=== PATIENT | female | born 2000 | race Caucasian/White ===

== ENCOUNTER 2023-04-04 19:13 | Emergency (ER) | payer OTHER, SELFPAY ==
[2023-04-04 19:19] VITALS: BP 139/87; PULSE 104; RESP 16; TEMP 37.4; O2SAT 98; BMI 29.1
--- NOTE | 2023-04-04 19:30 | ED_ITS ---
HPI - General Adult General Chief complaint: Nausea/Vomiting/Diarrhea Stated complaint: under 20 weeks, Nausea/Vomiting Time Seen by Provider: 04/04/23 19:17 Source: patient Mode of arrival: walk-in History of Present Illness HPI narrative: Patient is A 22-year-old female who presents to the ER at 4 to 5 weeks of for nausea and feeling shaky. She denies abdominal pain, vaginal bleeding, fluid leakage. She has had no fevers, chills, cough, congestion. She states her primary concern is that it is difficult for her to work when she is feeling so nauseous, she states she feels nauseous when she eats and when she d oes not eat. She had a positive home test, she is awaiting an appointment with her [employer] in [place]. Related Data Previous Rx's Medication Instructions Recorded ondansetron 4 mg disintegrating 4 mg PO Q6H PRN nausea and 04/04/23 tablet vomiting #12 tabs Allergies Allergy/AdvReac Type Severity Reaction Status Date / Time No Known Drug Allergies Allergy Verified 04/04/23 19:21 Review of Systems ROS Constitutional Denies: fever or chills Ears, nose, mouth, and throat Denies: nasal congestion Cardiovascular Denies: chest pain Respiratory Denies: shortness of breath or cough Gastrointestinal Reports: nausea; Denies: abdominal pain, vomiting or diarrhea Genitourinary Denies: painful urination, pelvic pain, vaginal bleeding or vaginal discharge Musculoskeletal Denies: back pain Integumentary/Breast Denies: rash Neurological Denies: headache Exam Narrative Exam Narrative: Gen.: Awake, alert, in no distress Head: Normocephalic, atraumatic ENT: Moist mucous membranes Respiratory: No respiratory distress, lungs clear bilaterally Cardio: Regular rate and rhythm Gastrointestinal: Abdomen is soft, nondistended and nontender to palpation Extremities: Moves extremities equally Psych: Normal mood and affect Neuro: No focal neuro deficit Skin: Warm, dry, intact Constitutional Vital Signs, click to edit/add: Last Vital Signs Temp 99.3 F 04/04/23 19:19 Pulse 104 H 04/04/23 19:19 Resp 16 04/04/23 19:19 BP 139/87 04/04/23 19:19 Pulse Ox 98 04/04/23 19:19 O2 Del Method Room Air 04/04/23 19:25 Course Vital Signs Vital signs: Vital Signs Temperature 99.3 F 04/04/23 19:19 Pulse Rate 104 H 04/04/23 19:19 Respiratory Rate 16 04/04/23 19:19 Blood Pressure 139/87 04/04/23 19:19 Pulse Oximetry 98 04/04/23 19:19 Oxygen Delivery Method Room Air 04/04/23 19:19 Temperature 99.3 F 04/04/23 19:19 Pulse Rate 104 H 04/04/23 19:19 Respiratory Rate 16 04/04/23 19:19 Blood Pressure 139/87 04/04/23 19:19 Pulse Oximetry 98 04/04/23 19:19 Oxygen Delivery Method Room Air 04/04/23 19:25 Medical Decision Making MDM Narrative Medical decision making narrative: Lab studies are unremarkable, no evidence of severe dehydration. test is positive. Patient given Zofran for home. Follow-up with [employer] and return to the ER if symptoms change or worsen. She has no complaints of abdominal pain, vaginal bleeding or fluid leakage in the ER. Medical Records Medical records reviewed: Yes I reviewed the patient's medical records Lab Data Lab results reviewed: Yes I reviewed the patient's lab results Labs: Lab Results 04/04/23 04/04/23 Range/Units 19:24 20:04 WBC 11.3 H (4.0-11.0) 10^3/uL RBC 4.11 L (4.20-5.40) 10^6/uL Hgb 12.8 (12.0-16.0) g/dL Hct 36.7 (36.0-48.0) % MCV 89.3 (81.0-99.0) fL MCH 31.1 (26.7-34.0) pg MCHC 34.9 (29.9-35.2) g/dL RDW 12.0 (11.0-15.0) % Plt Count 324 (150-450) 10^3/uL MPV 9.1 L (9.5-13.5) fL Neut % (Auto) 61.7 (43.0-75.0) % Lymph % (Auto) 30.4 (20.5-60.0) % Starke % (Auto) 6.6 (1.7-12.0) % Eos % (Auto) 0.5 L (0.9-7.0) % Baso % (Auto) 0.5 (0.2-2.0) % Neut # (Auto) 7.0 H (1.4-6.5) 10^3/uL Lymph # (Auto) 3.4 (1.2-3.8) 10^3/uL Starke # (Auto) 0.7 (0.3-0.8) 10^3/uL Eos # (Auto) 0.1 (0.0-0.7) 10^3/uL Baso # (Auto) 0.1 (0.0-0.1) 10^3/uL Abs Immat Gran (auto) 0.03 (0.00-0.03) 10^3/uL Imm/Tot Granulo (auto) 0.3 (0.0-0.5) % Sodium 137 (136-145) mmol/L Potassium 3.9 (3.5-5.1) mmol/L Chloride 103 (98-107) mmol/L Carbon Dioxide 26.0 (21.0-32.0) mmol/L Anion Gap 11.9 BUN 5.0 L (7.0-18.0) mg/dL Creatinine 0.58 (0.55-1.02) mg/dL Est GFR ( Amer) >60 (>=60) Est GFR (Non-Af Amer) >60 (>=60) BUN/Creatinine Ratio 8.6 Glucose 82 (74-106) mg/dL Calcium 8.8 (8.5-10.1) mg/dL Serum HCG, Qual Positive A (NEGATIVE) Urine Color Lt. yellow (YELLOW) Urine Clarity Clear (CLEAR) Urine pH 7.5 (5.0-9.0) Ur Specific [place] 1.020 (1.005-1.025) Urine Protein Negative (NEG/TRACE) mg/dL Urine Glucose (UA) Negative (NEGATIVE) mg/dL Urine Ketones Negative (NEGATIVE) mg/dL Urine Occult Blood Negative (NEGATIVE) Urine Nitrite Negative (NEGATIVE) Urine Bilirubin Negative (NEGATIVE) Urine Urobilinogen 0.2 (0.2-1.0) EU/dL Ur Leukocyte Esterase Negative (NEGATIVE) Discharge Plan Discharge Chief Complaint: Nausea/Vomiting/Diarrhea Clinical Impression: Nausea/vomiting in Patient Disposition: Home, Self-Care Time of Disposition Decision: 20:33 Condition: Good Prescriptions / Home Meds: New ondansetron 4 mg tablet,disintegrating 4 mg PO Q6H PRN (Reason: nausea and vomiting) Qty: 12 0RF Instructions: Nausea and Vomiting in (ED) Stand Alone Forms: Portal Instructions Referrals: Physician,Non-Staff, MD [Primary Care Provider] - 1 week
[2023-04-04] MEDS: ONDANSETRON 4 MG RAPDIS TABLET SL (19:41)
[2023-04-04 19:43] LABS: Bilirubin Urine NEGATIVE (NEGATIVE); Blood Urine NEGATIVE (NEGATIVE); Clarity Urine CLEAR (CLEAR); Color Urine LT. YELLOW (YELLOW); Glucose Urine UA NEGATIVE (NEGATIVE); Ketones Urine NEGATIVE (NEGATIVE); Leukocyte Esterase Urine NEGATIVE (NEGATIVE); Nitrite Urine NEGATIVE (NEGATIVE); Protein Urine NEGATIVE (NEG/TRACE); Urobilinogen Urine 0.2 EU/dL (0.2-1.0); pH Urine 7.5 (5.0-9.0)
[2023-04-04 19:45] LABS: Urine Microscopic Indicated NO
[2023-04-04 20:13] LABS: Basophils Absolute Auto 0.1 10^3/uL (0.0-0.1); Basophils Percent Auto 0.5 % (0.2-2.0); Eosinophils Absolute Auto 0.1 10^3/uL (0.0-0.7); Eosinophils Percent Auto 0.5 % (0.9-7.0); Hematocrit 36.7 % (36.0-48.0); Hemoglobin 12.8 g/dL (12.0-16.0); Immature Granulocytes Abs Auto 0.03 10^3/uL (0.00-0.03); Immature Granulocytes Pct Auto 0.3 % (0.0-0.5); Lymphocytes Absolute Auto 3.4 10^3/uL (1.2-3.8); Lymphocytes Percent Auto 30.4 % (20.5-60.0); Mean Corpuscular HGB Conc 34.9 g/dL (29.9-35.2); Mean Corpuscular Hemoglobin 31.1 pg (26.7-34.0); Mean Corpuscular Volume 89.3 fL (81.0-99.0); Mean Platelet Volume 9.1 fL (9.5-13.5); Monocytes Absolute Auto 0.7 10^3/uL (0.3-0.8); Monocytes Percent Auto 6.6 % (1.7-12.0); Neutrophils Percent Auto 61.7 % (43.0-75.0); Platelet Count 324 10^3/uL (150-450); Red Blood Count 4.11 10^6/uL (4.20-5.40); White Blood Count 11.3 10^3/uL (4.0-11.0)
[2023-04-04 20:18] LABS: HCG Qualitative POSITIVE (NEGATIVE)
[2023-04-04 20:23] LABS: Anion Gap 11.9; BUN Creatinine Ratio 8.6; Calcium 8.8 mg/dL (8.5-10.1); Chloride 103 mmol/L (98-107); Estimated GFR (African America >60 (>=60); Estimated GFR (Non-African Ame >60 (>=60); Glucose 82 mg/dL (74-106); Potassium 3.9 mmol/L (3.5-5.1); Sodium 137 mmol/L (136-145)
== END 2023-04-04 20:49 | disposition home or self-care (01) ==
PROVIDERS: Physician Assistant; Emergency Provider Emergency Medicine
DX: O26.891 Other specified pregnancy related conditions, first trimester (principal); R11.2 Nausea with vomiting, unspecified; Z3A.01 Less than 8 weeks gestation of pregnancy
CPT/HCPCS: 36415; 80048; 81003; 84703; 85025; 99284; Q0162

== ENCOUNTER 2023-04-17 13:40 | Outpatient (OUT) | payer OTHER, SELFPAY ==
--- OUTSIDE RECORDS SUMMARY | 2023-04-17 13:43 | XMS_ITS | CCD ---
Author Name Unknown Address [address] [place] [address] Organization [facility] Care Team Providers Care Senior Firewall Engineer Name Role Phone Zandra Ellison Unavailable DR TRESSA SANDOVAL Admitting Unavailable DR ADDI BAEZ Primary Care Unavailable DR TRESSA SANDOVAL Attending Unavailable Marylou Curtis Unavailable BARRINGTON Curtis Attending Provider Marylou Curtis Attending Unavailable Marylou Curtis Admitting Unavailable Addi Baez Primary Care Unavailable Allergies Allergy Classification Reported Allergen(s) Allergy Type Date of Onset Reaction(s) Facility (3 sources) dairy Propensity to adverse reactions diarrhea [facility] Other Medications Current Medications Medication Drug Class(es) Dates Sig (Normalized) Sig (Original) metroNIDAZOLE 500 mg oral tablet (2 sources) Nitroimidazole Antimicrobial Start: 02-06-2023 take 1 tablet by mouth every twelve hours metroNIDAZOLE 500 MG 1 tablet Orally Twice a day for 7 Jan, Active Problems Active Problems Problem Classification Problem Date Documented Date Episodic/Chronic 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; 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 Immunizations and screening for infectious disease (4 sources) Contact with and (suspected) exposure to other viral communicable diseases; Translations: [Contact with and (suspected) exposure to other viral communicable diseases] Episodic Other female genital disorders (2 sources) Other specified noninflammatory disorders of vagina Episodic Other female genital disorders (1 source) Other specified noninflammatory disorders of vagina; Translations: [Other specified noninflammatory disorders of vagina] Onset: 02-06-2023 Episodic Other upper respiratory infections (4 sources) Acute sinusitis; Translations: [Sinusitis acute] Episodic Past or Other Problems Problem Classification Problem Date Documented Da te Episodic/Chronic Other and delivery including normal (4 sources) Encounter for routine follow-up; Translations: [ENC ROUTINE FOLLOW-UP] Onset: 01-10-2021 Episodic Results Test Name Value Interpretation Reference Range Facility Vaginitis Plus (VG+)on 02-06 Atopobium Vaginae High - 2 Critically abnormal . [facility] Comment on above: Order Comment: Reason for Exam Vaginal o rashel Performed By: #### V AGINITIS+ #### [facility] , BVAB2 High - 2 Critically abnormal . [facility] Comment on above: Order Comment: Reason for Exam Vaginal o rashel Performed By: #### V AGINITIS+ #### [facility] , Gayle Albicans, EH Negative Normal Negative [facility] Comment on above: Order Comment: Reason for Exam Vaginal o rashel Result Comment: This test was developed and its performance characteristics determined by [facility]. It has not been cleared or approved by the Food and Drug Administration. Performed By: #### V AGINITIS+ #### [facility] , Gayle Glabrata, EH Negative Normal Negative [facility] Comment on above: Order Comment: Reason for Exam Vaginal o rashel Result Comment: This test was developed and its performance characteristics determined by [facility]. It has not been cleared or approved by the Food and Drug Administration. PERFORMED BY: [facility] [address] [place] [address] PATHOLOGIST MINT WAFER DEPOSITOR JOHN MONREAL M.D. Performed By: #### V AGINITIS+ #### [facility] , Chlamydia Trachomotis, EH Negative Normal Negative [facility] Comment on above: Order Comment: Reason for Exam Vaginal o rashel Performed By: #### V AGINITIS+ #### [facility] , Megasphaera High - 2 Critically abnormal . [facility] Comment on above: Order Comment: Reason for Exam Vaginal o rashel Result Comment: Calc ulate total score by adding the 3 individual bacterial vaginosis (BV) marker scores together. Total score is interpreted as follows: Total score 0-1: Indicates the absence of BV. Total score 2: Indeterminate for BV. Additional clinical data should be evaluated to establish a diagnosis. Total score 3-6: Indicates the presence of BV. This test was developed and its performance characteristics determined by [facility]. It has not been cleared or approved by the Food and Drug Administration. Performed By: #### V AGINITIS+ #### [facility] , Neisseria Gonorrhoeae, EH Negative Normal Negative [facility] Comment on above: Order Comment: Reason for Exam Vaginal o rashel Result Comment: Perf ormed at: =G - [facility] [address] [place], [place] [id number] Template Clerk: Mame Sheth MD, Phone: [phone] Performed By: #### V AGINITIS+ #### [facility] , Tric Vag EH Negative Normal Negative [facility] Comment on above: Order Comment: Reason for Exam Vaginal o rashel Performed By: #### V AGINITIS+ #### [facility] , Quick Strepon 12-29-2021 S. pyogenes Org specific cx Ql (Throat) Negative [facility] Other Quick Strep [facility] Other SARS-CoV-2 (COVID-19) RNA NA A+probe Ql (Resp)on 12-29-2021 SARS-CoV-2 (COVID-19) RNA EH+probe Ql (Unsp spec) Negative [facility] Other Vital Signs Date Time Vital Sign Value Performing Clinician Facility 02-06-2023 14:50-0500 Body height 162.56 cm Marylou Curtis Other [facility] Other 12-29-2021 19:20-0400 Body height 162.56 cm Zandra Ellison Other [facility] Other 12-29-2021 19:20-0400 Body mass index (BMI) [Ratio] 26.6 kg/m2 Zandra Ellison Other [facility] Other 12-29-2021 19:20-0400 Body temperature 98.9 [degF] Zandra Ellison Other [facility] Other 12-29-2021 19:20-0400 Body weight 70.31 kg Zandra Ellison Other [facility] Other 12-29-2021 19:20-0400 Respiratory rate 18 /min Zandra Ellison Other [facility] Other 12-29-2021 19:20-0400 SaO2% (BldA) [Mass fraction] 97 % Zandra Ellison Other [facility] Other Encounters Encounter Date Encounter Type Care Provider Facility Start: 02-17-2023 End: 02-17-2023 ambulatory Marylou Curtis Other [facility] Other Start: 02-17-2023 Telephone encounter Marylou Curtis [facility] Start: 02-06-2023 End: 02-06-2023 Departed Referred SENIOR ESTIMATOR-C Marylou Curtis Work Phone: [facility] [place] Work Phone: Start: 02-06-2023 End: 02-06-2023 ambulatory Marylou Curtis [facility] Work Phone: Start: 02-06-2023 Office outpatient vi sit 15 minutes Marylou Curtis [facility] Start: 12-29-2021 End: 12-29-2021 ambulatory Zandra Ellison Other [facility] Other Start: 12-29-2021 Office outpatient vi sit 15 minutes Zandra Ellison [facility] Start: 01-10-2021 End: 01-10-[address] TRESSA SANDOVAL Facility:[facility] Plan of Treatment Date Care Activity Detail Author Atopoterrence vaginae DN A [Presence] in Vaginal fluid by EH with probe detection [facility] enter Bacterial vaginosis associated bacterium 2 DNA [Presence] in Vaginal fluid by EH with probe detection [facility] Megasphaera sp type 1 DNA [Presence] in Vaginal fluid by EH with probe detection [facility] enter [facility] Payers Date Payer Category Payer Self-pay [id number] 2023 Unknown [id number] 2000 Unknown [id number] 1959 Private Health Insurance [id number] 1959 Unknown [id number] 1959 Unknown [id number] 2. [id number] Unknown [id number] Social History Date Type Detail Facility Unknown if ever smoked [facility] Other Sex Assigned At Sex Assigned At Bir th [facility] Other Start: 2000 Sex Assigned At Female F [facility] Evaluation note 02-06-2023 Note Date & Type Note Facility 02-06-2023 Evaluation note Encounter Date Diagnosis Assessment Notes Jan, Vaginal odor (ICD-10 - N89.8) Vaginal discharge home care material was printed Drink plenty fluids, get plenty of rest. Take the metronidazole as prescribed until gone. Do not drink alcohol while taking the metronidazole. Avoid intercourse for the next 2 weeks. Always use condoms. Jan, Vaginal discharge (ICD-10 - N89.8) [facility] Other Evaluation note 12-29-2021 Note Date & Type Note Facility 12-29-2021 Evaluation note Encounter Date Diagnosis Assessment Notes Dec, Contact with and (suspected) exposure to other viral communicable diseases (ICD-10 - Z20.828) Dec, Viral URI (ICD-10 - J06.9) testing is negative today in clinic. low suspicion for bacterial infection at this time. continue symptomatic tx c otc meds prn. recommended cool mist humidifier. push rest/fluids. reinforced universal infection control protocols and good hand hygiene for infection control. pt education and anticipatory guidance provided on viral vs bacterial infection progression. immediate eval if warning s/s of intractable fevers, respir distress or other emergent symptoms. otherwise f/u with PCP if febrile or new/worsening s/s. [facility] Other Evaluation note Note Date & Type Note Facility Evaluation note No assessment information availa [facility] Work Phone: Evaluation note Note Date & Type Note Facility Evaluation note No Information [employer] Other History general Narrative - Reported Note Date & Type Note Facility History general Narrative - Reported Type Medical History Food Allergies Medical History anxiety Surgical History oral surgery Hospitalization History Viral Infection 2011 [facility] Other Summary Purpose Family History No Family History Records FoundNo Family History Records Found Advance Directives Advance Directive Response Recorded Date/ Time Advance Directives No October 10 9:40am Chief Complaint and Reason for Visit Chief Complaint Vaginal odor Additional Source Comments REASON FOR VISIT (unrecogniz ed section and content) COUGH, CONGESTION, B/A, CHIL LSBACTERIAL VAGINITIS CHECKNo Information INFORMATION SOURCE (unrecogn ized section and content) DATE CREATED AUTHOR 01/20/2022 [facility] DATE CREATED AUTHOR AUTHOR'S ORGANIZ ATION 02/13/2023 [facility] Care Teams (unrecognized sec tion and content) Team Status: Inactive Member Role Status Dates BARRINGTON Romero Attending Provider Active Goals (unrecognized section and content) Goals may be documented in a n alternate section FOR RECORDS PERTAINING TO PATIENTS WHO ARE OR HAVE BEEN ENROLLED IN A CHEMICAL DEPENDENCY/SUBSTANCEABUSE PROGRAM, SOME INFORMATION MAY BE OMITTED. This clinical summary was aggregated from multiple sources. Caution should be exercised in using it in the provision of clinical care. This summary normalizes information from multiple sources, and as a consequence, information in this document may materially change the coding, format and clinical context of patient data. In addition, data may be omitted in some cases. CLINICAL DECISIONS SHOULD BE BASED ON THE PRIMARY CLINICAL RECORDS. [employer] [facility]. provides no warranty or guarantee of the accuracy or completeness of information in this document.
--- NOTE | 2023-04-17 13:47 | US_ITS ---
[address] [address] Patient Name: BETZY CELAYA MRN: [id number] date: 2000 Sex: F Assigned Patient Location: US Current Patient Location: US Accession/Order Number: [id number] Exam Date: 04/17/2023 14:00 Report Date: 04/17/2023 14:53 At the request of: MICHELLE FRANCO Procedure: US OB transvaginal EXAMINATION: US OB transvaginal HISTORY: amenorrhea N91.2 COMPARISON: No relevant comparison available. FINDINGS: Cornelius intrauterine gestation Gestational sac: 4.1 cm, 9 weeks 3 days CRL: 2.5 cm, 9 weeks 2 days Yolk sac: 3.7 mm Heart rate: 174 beats minute Cervix: Closed, 5.4 cm The uterus is anteverted. Identified adjacent to the gestational sac is a 4.3 x 7.8 x 10.7 mm area of hypoechogenicity likely a small subchorionic hematoma The right ovary contains a corpus luteal cyst. The left ovary is normal Clinical age: 8 weeks 5 days Clinical JOSE: 11/22/2023 Ultrasound age: 9 weeks 2 days Ultrasound JOSE: 11/18/2023 US/US OB transvaginal IMPRESSION: Viable cornelius intrauterine gestation measuring 9 weeks 2 days 10 mm subchorionic hematoma Electronically authenticated by: KAY MCGILL Date: 04/17/2023 14:53
== END 2023-04-17 13:41 | disposition home or self-care (01) ==
LOC: US 13:41
PROVIDERS: Visit Provider Midwife
DX: N91.2 Amenorrhea, unspecified (principal); Z32.01 Encounter for pregnancy test, result positive; Z3A.09 9 weeks gestation of pregnancy
CPT/HCPCS: 76817

== ENCOUNTER 2023-05-03 14:49 | Emergency (ER) | payer OTHER, SELFPAY ==
[2023-05-03 14:53] VITALS: BP 128/88; PULSE 107; RESP 18; TEMP 36.7; O2SAT 99; BMI 29.9
--- NOTE | 2023-05-03 14:58 | US_ITS ---
[facility] [place] [id number] Patient Name: BETZY CELAYA MRN: [id number] date: 2000 Sex: F Assigned Patient Location: ER Current Patient Location: ER Accession/Order Number: [id number] Exam Date: 05/03/2023 16:03 Report Date: 05/03/2023 18:05 At the request of: ALESSANDRA ROTH Procedure: US OB <= 14 weeks fetus EXAM: US OB <= 14 weeks fetus HISTORY: VAGINAL BLEEDING COMPARISON: 04/17/2023 , P1 FINDINGS: Hoagn intrauterine gestation Gestational sac: 6.8 cm CRL: 5.1 cm, 11 weeks 6 days Yolk sac: 0.89 cm Heart rate: 166 beats minute Cervix: Closed, 4.5 cm The uterus is anteverted. Identified adjacent to the gestational sac, there is persistent 3.2 x 2.9 x 2.6 cm area of hypoechogenicity likely representing subchorionic hematoma The right ovary contains a corpus luteal cyst. The left ovary is normal Ultrasound age: 11 weeks 6 days Ultrasound JOSE: 11/18/2023 US/US OB <= 14 weeks fetus IMPRESSION: Single live intrauterine fetus with gestational age of 11 weeks 6 days 3.2 cm subchorionic hematoma Electronically authenticated by: TRACY MCQUEEN Date: 05/03/2023 18:05
--- OUTSIDE RECORDS SUMMARY | 2023-05-03 15:11 | XMS_ITS | CCD ---
Author Name Unknown Address [address] [place] [address] Organization [facility] Care Team Providers Care Crop Insurance Claims Adjuster Name Role Phone Zandra Ellison Unavailable DR TRESSA SANDOVAL Admitting Unavailable DR ADDI BAEZ Primary Care Unavailable DR TRESSA SANDOVAL Attending Unavailable Marylou Curtis Unavailable BARRINGTON Curtis Attending Provider [phone] Marylou Curtis Attending Unavailable Marylou Curtis Admitting Unavailable Addi Baez Primary Care Unavailable Unavailable Primary Care Provider UnavailMICHELLE Engle Attending Unavailable MICHELLE ROJAS Attending Unavailable Allergies Allergy Classification Reported Allergen(s) Allergy Type Date of Onset Reaction(s) Facility (3 sources) dairy Propensity to adverse reactions diarrhea [facility] Other (1 source) Milk Drug allergy (disorder) 3 [facility] Repository Medications Current Medications Medication Drug Class(es) Dates Sig (Normalized) Sig (Original) metroNIDAZOLE 500 mg oral tablet (2 sources) Nitroimidazole Antimicrobial Start: 02-06-2023 take 1 tablet by mouth every twelve hours metroNIDAZOLE 500 MG 1 tablet Orally Twice a day for 7 Jan, Active Problems Problem Classification Problem Date Documented [...] disorders of vagina] Onset: 02-06-2023 Episodic Other and delivery including normal (8 sources) Encounter for routine follow-up; Translations: [ test positive] Onset: 01-10-2021 Episodic Other upper respiratory infections (4 sources) Acute sinusitis; Translations: [Sinusitis acute] Episodic Results Test Name Value Interpretation Reference Range Facility Vaginitis Plus (VG+)on 02-06 Atopobium Vaginae High - [address] [facility] Comment on above: Order Comment: Reason for Exam Vaginal o rashel Performed By: #### V AGINITIS+ #### [facility] , BVAB2 High - 2 Critically abnormal . [facility] Comment on above: Order Comment: Reason for Exam Vaginal o rashle Performed By: #### V AGINITIS+ #### [facility] , Gayle Albicans, EH Negative Normal Negative [facility] Comment on above: Order Comment: Reason for Exam Vaginal o rashel Result Comment: This test was developed and its performance characteristics determined by [facility]. It has not been cleared or approved by the Food and Drug Administration. Performed By: #### V AGINITIS+ #### [facility] , Gayle Glabrata, EH Negative Normal Negative [facility] Comment on above: Order Comment: Reason for Exam Vaginal o rashel Result Comment: This test was developed and its performance characteristics determined by [facility]. It has not been cleared or approved by the Food and Drug Administration. PERFORMED BY: [facility] [address] [place] [address] PATHOLOGIST BELT LOOP MACHINE OPERATOR JOHN MONREAL M.D. Performed By: #### V AGINITIS+ #### [facility] , Chlamydia Trachomotis, EH Negative Normal Negative [facility] Comment on above: Order Comment: Reason for Exam Vaginal o rashel Performed By: #### V AGINITIS+ #### [facility] , Megasphaera High - 2 Critically abnormal . [facility] Comment on above: Order Comment: Reason [...] , Neisseria Gonorrhoeae, EH Negative Normal Negative [facility] Comment on above: Order Comment: Reason for Exam Vaginal o rashel Result Comment: Perf ormed at: =G - [facility] [address] [place] [id number] Water Conservationist: Mame Sheth MD, Phone: [phone] Performed By: #### V AGINITIS+ #### [facility] , Tric Vag EH Negative Normal Negative [facility] Comment on above: Order Comment: Reason for Exam Vaginal o rashel Performed By: #### V AGINITIS+ #### [facility] , Quick Strepon 12-29-2021 S. pyogenes Org specific cx Ql (Throat) Negative [facility] Other Quick Strep [facility] Other SARS-CoV-2 (COVID-19) RNA NA A+probe Ql (Resp)on 12-29-2021 SARS-CoV-2 (COVID-19) RNA EH+probe Ql (Unsp spec) Negative [facility] Other Vital Signs Date Time Vital Sign Value Performing Clinician Facility 05-01-2023 11:15-0500 Body height 162.6 cm Michelle [facility] Work Phone: [facility] 05-01-2023 10:30-0500 Body mass index (BMI) [Ratio] 30.55 kg/m2 [facility] Work Phone: [facility] 05-01-2023 10:30-0500 Body weight 80.74 kg Michelle Rojas CNM Work Phone: [facility] 05-01-2023 10:30-0500 Diastolic blood pressure 70 mm[Hg] Michelle Rojas CNM Work Phone: [facility] 05-01-2023 10:30-0500 Systolic blood pressure 114 mm[Hg] Michelle Rojas CNM Work Phone: [facility] 02-06-2023 14:50-0500 Body height 162.56 cm Marylou Kirsten Other [facility] Other 12-29-2021 19:20-0400 Body height 162.56 cm Zandra Ellison Other [facility] Other 12-29-2021 19:20-0400 Body mass index (BMI) [Ratio] 26.6 kg/m2 Zandra Ellison Other [facility] Other 12-29-2021 19:20-0400 Body temperature 98.9 [degF] Zandra Ellison Other [facility] Other 12-29-2021 19:20-0400 Body weight 70.31 kg Zandra Ellison Other [facility] Other 12-29-2021 19:20-0400 Respiratory rate 18 /min Zandra Ellison Other [facility] Other 12-29-2021 19:20-0400 SaO2% (BldA) [Mass fraction] 97 % Zandra Ellison Other [facility] Other Encounters Encounter Date Encounter Type Care Provider Facility Start: 05-01-2023 Bamboo flowscheko Michelle Antonio Ac hill CNM Work Phone: [facility] Start: 05-01-2023 Bamboo flowsheet Michelle Shen ro CNM Work Phone: [facility] Start: 05-01-2023 ambulatory MICHELLE ROJAS Not [place] ilable Start: 05-01-2023 End: 05-01-2023 Initial care visit Michelle Rojas CNM Work Phone: [facility] Comment on above: examinatio n or test, positive result (Primary Dx); Encounter for care of first , second trimester Start: 04-17-2023 End: 04-18-2023 ambulatory MICHELLE ROJAS Not Available Start: 02-17-2023 End: 02-17-2023 ambulatory Marylou Curtis Other [facility] Other Start: 02-17-2023 Telephone encounter Marylou Curtis [facility] Start: 02-06-2023 End: 02-06-2023 Departed Referred [employer] INSTALLER-C Marylou Curtis Work Phone: [facility] [place] Work Phone: Start: 02-06-2023 End: 02-06-2023 ambulatory Marylou Curtis [facility] Work Phone: Start: 02-06-2023 Office outpatient vi sit 15 minutes Marylou Curtis [facility] Start: 12-29-2021 End: 12-29-2021 ambulatory Zandra Ellison Other [facility] Other Start: 12-29-2021 Office outpatient vi sit 15 minutes Zandra Ellison [facility] Start: 01-10-2021 End: 01-10-[address] TRESSA SANDOVAL Facility: Plan of Treatment Date Care Activity Detail Author Start: 05-29-2023 End: 05-29-2023 Patient encounter procedure 05/29/2023 10:30 AM EDT Routine [facility] [address] [place] [id number] Michelle Rojas, CNM [address] [place] [address] [facility] Start: 05-01-2023 End: 05-01-2024 Bacteria identified in Urine by Culture Urine culture Microbiology Routine examination or test, positive result Encounter for care of first , second trimester Expected: 05/01/2023 (Approximate), Expires: 05/01/2024 [facility] Comment on above: Expected: 05/01/2023 (Approximate), Expires: 05/01/2024 Start: 05-01-2023 End: 05-01-2024 DRUG TOX MONITORIGN 6 W/ CONF,URINE DRUG TOX MONITORIGN 6 W/ CONF,URINE Lab Routine examination or test, positive result Encounter for care of first , second trimester Expected: 05/01/2023 (Approximate), Expires: 05/01/2024 [facility] Comment on above: Expected: 05/01/2023 (Approximate), Expires: 05/01/2024 Start: 05-01-2023 End: 05-01-2024 Neisseria gonorrhoeae DNA [Presence] in Cervical mucus by EH with probe detection C. trachomatis / N. gonorrhoeae, DNA probe Lab Routine examination or test, positive result Encounter for care of first , second trimester Expected: 05/01/2023 (Approximate), Expires: 05/01/2024 [facility] Comment on above: Expected: 05/01/2023 (Approximate), Expires: 05/01/2024 Start: 05-01-2023 End: 05-01-2024 QHERIT(TM) EXPANDED CARRIER SCREEN QHERIT(TM) EXPANDED CARRIER SCREEN Lab Routine Encounter for care of first , second trimester Expected: 05/01/2023 (Approximate), Expires: 05/01/2024 [facility] Comment on above: Expected: 05/01/2023 (Approximate), Expires: 05/01/2024 Start: 05-01-2023 End: 05-01-2024 QNATAL(R) ADVANCED QNATAL(R) ADVANCED Lab Routine Encounter for care of first , second trimester Expected: 05/01/2023 (Approximate), Expires: 05/01/2024 [facility] Comment on above: Expected: 05/01/2023 (Approximate), Expires: 05/01/2024 Start: 05-01-2023 End: 05-01-2024 TSH W/REFLEX TO FT4 TSH W/REFLEX TO FT4 Lab Routine examination or test, positive result Encounter for care of first , second trimester Expected: 05/01/2023 (Approximate), Expires: 05/01/2024 [facility] Comment on above: Expected: 05/01/2023 (Approximate), Expires: 05/01/2024 Start: 05-01-2023 End: 05-01-2024 URINALYSIS MICROSCOPIC URINALYSIS MICROSCOPIC Lab Routine examination or test, positive result Encounter for care of first , second trimester Expected: 05/01/2023 (Approximate), Expires: 05/01/2024 [facility] Comment on above: Expected: 05/01/2023 (Approximate), Expires: 05/01/2024 Start: 05-01-2023 End: 05-01-2023 Patient encounter procedure 05/01/2023 10:30 AM EST Routine [facility] [address] [place] [address] Michelle Rojas, CNM [address] [place] [address] Arrived [facility] Comment on above: Arrived ABO/Rh ABO/Rh Lab Routi ne examination or test, positive result Encounter for care of first , second trimester Ordered: 05/01/2023 [facility] Comment on above: Ordered: 05/01/2023 Antibody screen Antibody screen Lab Routine examination or test, positive result Encounter for care of first , second trimester Ordered: 05/01/2023 [facility] Comment on above: Ordered: 05/01/2023 Atopobium vaginae DN A [Presence] in Vaginal fluid by EH with probe detection [facility] Bacterial vaginosis associated bacterium 2 DNA [Presence] in Vaginal fluid by EH with probe detection [facility] CBC panel - Blood by Automated count CBC Lab Routine examination or test, positive result Encounter for care of first , second trimester Ordered: 05/01/2023 [facility] Comment on above: Ordered: 05/01/2023 Hemoglobin A1c measurement Hemoglobin A1c Lab Routine examination or test, positive result Encounter for care of first , second trimester Ordered: 05/01/2023 [facility] Comment on above: Ordered: 05/01/2023 Hepatitis B virus surface Ag [Presence] in Serum or Plasma by Immunoassay Hepatitis B surface antigen Lab Routine examination or test, positive result Encounter for care of first , second trimester Ordered: 05/01/2023 [facility] Work Phone: Comment on above: Ordered: 05/01/2023 Hepatitis C virus Ab [Presence] in Serum or Plasma by Immunoassay Hepatitis C antibody Lab Routine examination or test, positive result Encounter for care of first , second trimester Ordered: 05/01/2023 [facility] Comment on above: Ordered: 05/01/2023 HIV-1/HIV-2 antigen/antibody combination immunoassay HIV-1 and HIV-2 antibodies Lab Routine examination or test, positive result Encounter for care of first , second trimester Ordered: 05/01/2023 [facility] Comment on above: Ordered: 05/01/2023 Megasphaera sp type 1 DNA [Presence] in Vaginal fluid by EH with probe detection [facility] Reagin Ab [Presence] in Serum by RPR RPR Lab Routine examination or test, positive result Encounter for care of first , second trimester Ordered: 05/01/2023 [facility] Comment on above: Ordered: 05/01/2023 Rubella antibody, IgG Rubella an tibody, IgG Lab Routine examination or test, positive result Encounter for care of first , second trimester Ordered: 05/01/2023 [facility] Comment on above: Ordered: 05/01/2023 [facility] Payers Date Payer Category Payer Medicaid [employer] [facility] [id number] 2023-Present [address] [address] [place] [address] [id number] 2023 Unknown [employer] [id number] 2023-Present [address] [address] [place] [address] [id number] 2023 Self-pay [id number] 2023 Unknown [id number] 2000 Unknown [id number] 2000 Unknown [id number] 2000 Unknown [id number] 2000 Unknown [id number] 1959 Private Health Insurance [id number] 1959 Unknown [id number] 1959 Unknown [id number] Unknown [id number] Social History Date Type Detail Facility Unknown if ever smoked [facility] Other Start: 04-17-2023 Sex Assigned At N [facility] Other Start: 2000 Sex Assigned At Female F [facility] Start: 04-17-2023 Tobacco smoking status NHIS Ex-smoker [facility] History of tobacco use Current smoker [facility] History of tobacco use Cigarette Smoker [facility] Start: 04-17-2023 Tobacco use and exposure Smokeless tobacco non-user [facility] Start: 04-17-2023 Alcohol intake Ex-drinker (finding) [facility] Start: 04-17-2023 History of Social function [facility] Start: 03-01-2023 [facility] Start: 2000 Sex Assigned At Not on file [facility] History of Present illness Narrative 05-01-2023 Michelle Rojas CNM - 05/01/2023 10:30 AM EST Note Date & Type Note Facility 05-01-2023 History of Presen t illness Narrative Subjective No chief complaint on file. Vijaya Florence is a 22 y.o. at 10w5d with a working estimated date of delivery of 11/22/2023, by Last Menstrual Period who presents for a routine visit. She denies vaginal bleeding, leakage of fluid, decreased movements, and contractions. Her is complicated by: The following portions of the chart were reviewed this encounter and updated as appropriate: Objective Physical Exam weight: 178 lb, Pregravid BMI: Could not be calculated Expected Total Weight Gain: Could not be calculated BP: 114/70 Labs Imaging Assessment/Plan Diagnoses and all orders for this visit: examination or test, positive result - Hepatitis B surface antigen - Rubella antibody, IgG - CBC - Antibody screen - RPR - Hemoglobin A1c - TSH W/REFLEX TO FT4; Future - HIV-1 and HIV-2 antibodies - ABO/Rh - DRUG TOX MONITORIGN 6 W/ CONF,URINE; Future - Hepatitis C antibody - Urine culture; Future - URINALYSIS MICROSCOPIC; Future - C. trachomatis / N. gonorrhoeae, DNA probe; Future Encounter for care of first , second trimester - Hepatitis B surface antigen - Rubella antibody, IgG - CBC - Antibody screen - RPR - Hemoglobin A1c - TSH W/REFLEX TO FT4; Future - HIV-1 and HIV-2 antibodies - ABO/Rh - DRUG TOX MONITORIGN 6 W/ CONF,URINE; Future - Hepatitis C antibody - Urine culture; Future - URINALYSIS MICROSCOPIC; Future - C. trachomatis / N. gonorrhoeae, DNA probe; Future - QNATAL(R) ADVANCED; Future - QHERIT(TM) EXPANDED CARRIER SCREEN; Future Continue vitamin. Labs reviewed. Order placed for anatomy scan at 20 weeks. Follow up in 4 weeks for a routine visit. documented in this encounter [facility] Evaluation note 02-06-2023 Note Date & Type [...] condoms. Jan, Vaginal discharge (ICD-10 - N89.8) [facility] Other Evaluation note 12-29-2021 Note Date & [...] with PCP if febrile or new/worsening s/s. [facility] Other Evaluation note Note Date & Type Note Facility Evaluation note No assessment information [facility] Work Phone: Evaluation note Note Date & Type Note Facility Evaluation note No Information [employer] Other Evaluation note Note Date & Type Note Facility Evaluation note Diagnosis examination or test, positive result- Primary Encounter for care of first , second trimester documented in this encounter [facility] History general Narrative - Reported Note Date & Type Note Facility History general Narrative - Reported Type Medical History Food Allergies Medical History anxiety Surgical History oral surgery Hospitalization History Viral Infection 2011 [facility] Other Summary Purpose Family History No Family History Records FoundNo Family History Records FoundNo Family History Records Found Advance Directives No Advanced Directives Records Found Advance Directive Response Recorded Date/ Time Advance Directives No October 10 9:40am Chief Complaint and Reason for Visit Chief Complaint Vaginal odor Reason for Referral Specialty Diagnoses / Procedures Referred By Jagruti parrish Referred To Contact Obstetrics and Gynecology Diagnoses examination or test, positive result Encounter for care of first , second trimester Procedures NM OFFICE/OUTPATIENT NEW HIGH MDM 60 MINUTES Michelle Rojas Antonio, CNM [address] [place] [address] Michelle Rojas Antonio, CNM [address] [place] [address] Referral ID Status Reason Start Date Expiration Date Visits Requested Visits Authorized [id number] Pending Review Specialty Services Required 05/01/2023 10/28/2023 1 1 Additional Source Comments REASON FOR VISIT (unrecogniz ed section and content) COUGH, CONGESTION, B/A, CHIL LSBACTERIAL VAGINITIS CHECKNo Information INFORMATION SOURCE (unrecogn ized section and content) DATE CREATED AUTHOR 01/20/2022 [facility] DATE CREATED AUTHOR AUTHOR'S ORGANIZ ATION 04/26/2023 [facility] DATE CREATED AUTHOR AUTHOR'S ORGANIZ ATION 05/03/2023 [facility] Specialists EPIC Care Teams (unrecognized sec tion and content) Team Status: Inactive Member Role Status Dates INGRID RomeroC Attending Provider Active Goals (unrecognized section and [...] BE BASED ON THE PRIMARY CLINICAL RECORDS. [facility] [facility]. provides no warranty or guarantee of the accuracy or completeness of information in this document.
[2023-05-03 16:11] LABS: HCG Quantitative 110123 mIU/mL
[2023-05-03 17:06] LABS: Bilirubin Urine NEGATIVE (NEGATIVE); Blood Urine NEGATIVE (NEGATIVE); Clarity Urine CLEAR (CLEAR); Color Urine LT. YELLOW (YELLOW); Glucose Urine UA NEGATIVE (NEGATIVE); Ketones Urine NEGATIVE (NEGATIVE); Leukocyte Esterase Urine NEGATIVE (NEGATIVE); Nitrite Urine NEGATIVE (NEGATIVE); Protein Urine NEGATIVE (NEG/TRACE); Urobilinogen Urine 0.2 EU/dL (0.2-1.0); pH Urine 6.5 (5.0-9.0)
[2023-05-03] MEDS: RHO(D) IMMUNE GLOBULIN 1,500 UNIT SYRINGE 1500 UNIT IM (17:09)
[2023-05-03 17:10] LABS: Urine Microscopic Indicated NO
[2023-05-03 17:11] LABS: HCG Qualitative Urine* POSITIVE (NEGATIVE)
--- NOTE | 2023-05-03 17:28 | ED.FEMALEGU1 ---
Documented by User: Iris Kay 05/03/23 18:51 HPI - Female Genitourinary General Chief complaint: OB/Uterine Contractions Stated complaint: SPOTTING 10 WEEKS Time Seen by Provider: 05/03/23 14:56 Source: patient Mode of arrival: walk-in History of Present Illness HPI Narrative: Female presents here with chief complaint of vaginal bleeding with .This 2 para 1. She has a history of O-Negative blood type. She states first she had no difficulties, full term delivery. Patient states today while using the restroom she had a small amount of blood on her tissue paper earlier this morning she has had some abdominal cramping. pt denies fever, Chills or urinary symptoms Related Data Previous Rx's Medication Instructions Recorded ondansetron 4 mg disintegrating 4 mg PO Q6H PRN nausea and 04/04/23 tablet vomiting #12 tabs Allergies Allergy/AdvReac Type Severity Reaction Status Date / Time No Known Drug Allergies Allergy Verified 04/04/23 19:21 Review of Systems ROS Narrative All Systems are negative except as noted/marked. Exam Narrative Exam Narrative: All Systems are negative except as noted/marked.All systems reviewed and otherwise negative Nurses note and vital signs reviewed and patient is not hypoxic. General: The patient appears well and in no apparent distress. Patient is resting comfortably on cart. Skin: Warm, dry, no pallor noted. There is no rash noted. Head: Normocephalic, atraumatic Eye: Normal conjunctiva, no drainage, EOMI. PERRL Ears, Nose, Mouth, and Throat: oral mucosa is moist. Nares patent. Mouth without vesicles. Ear canals patent. Tm's without Erythema Cardiovascular: Regular Rate and Rhythm Respiratory: Patient is in no distress, no accessory muscle use, lungs are clear to auscultation, no wheezing, rales or rhonchi Back: non-tender, no CVA tenderness bilaterally to percussion. GI: Normal bowel sounds, no tenderness to palpation, no masses appreciated. No rebound, guarding, or rigidity noted. Musculoskeletal: The patient has no evidence of calf tenderness, no pitting edema, symmetrical pulses noted bilaterally Neurological: A&O x4, normal speech Psychiatric: Cooperative Constitutional Vital Signs, click to edit/add: Last Vital Signs Temp 98.1 F 05/03/23 14:53 Pulse 89 05/03/23 18:54 Resp 14 05/03/23 18:54 BP 108/77 05/03/23 18:54 Pulse Ox 100 05/03/23 18:54 O2 Del Method Room Air 05/03/23 18:54 Course Vital Signs Vital signs: Vital Signs Temperature 98.1 F 05/03/23 14:53 Pulse Rate 107 H 05/03/23 14:53 Respiratory Rate 18 05/03/23 14:53 Blood Pressure 128/88 05/03/23 14:53 Pulse Oximetry 99 05/03/23 14:53 Oxygen Delivery Method Room Air 05/03/23 14:53 Temperature 98.1 F 05/03/23 14:53 Pulse Rate 89 05/03/23 18:54 Respiratory Rate 14 05/03/23 18:54 Blood Pressure 108/77 05/03/23 18:54 Pulse Oximetry 100 05/03/23 18:54 Oxygen Delivery Method Room Air 05/03/23 18:54 MDM - Female Genitourinary MDM Narrative Medical decision making narrative: Complaint of vaginal bleeding. She states she is approximately 10 weeks . She had 1 ultrasound approximately 1 to 2 weeks ago. Ultrasound showed a viable intrauterine with cervix closed, subchorionic hematoma. Patient's quant today shows greater 110,000. She Has had no bleeding or cramping while here in the emergency room. 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 ptwill be given Order for a repeat quant to have obtained in 2 days. 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 He agrees with plan of care. Patient will follow-up with sorority supervisor Differential Diagnosis Differential diagnosis: Likely other (vaginal bleeding,threatened miscarriage) Medical Records Attestation: I reviewed the patient's medical records. Lab Data Attestation: I reviewed the patient's lab results. Labs: Lab Results 05/03/23 05/03/23 Range/Units 15:10 15:19 HCG, Quant [id number] mIU/mL Urine Color Lt. yellow (YELLOW) Urine Clarity Clear (CLEAR) Urine pH 6.5 (5.0-9.0) Ur Specific [place] 1.010 (1.005-1.025) Urine Protein Negative (NEG/TRACE) mg/dL Urine Glucose (UA) Negative (NEGATIVE) mg/dL Urine Ketones Negative (NEGATIVE) mg/dL Urine Occult Blood Negative (NEGATIVE) Urine Nitrite Negative (NEGATIVE) Urine Bilirubin Negative (NEGATIVE) Urine Urobilinogen 0.2 (0.2-1.0) EU/dL Ur Leukocyte Esterase Negative (NEGATIVE) Urine HCG, Qual Positive A (NEGATIVE) Blood Type O Negative Imaging Data US - abdomen: Radiologist's impression: ITS Impressions Ultrasound 05/03/23 14:58 IMPRESSION: Single live intrauterine fetus with gestational age of 11 weeks 6 days 3.2 cm subchorionic hematoma Electronically authenticated by: TRACY MCQUEEN Date: 05/03/2023 18:05 Discharge Plan Discharge Chief Complaint: OB/Uterine Contractions Clinical Impression: Vaginal bleeding in , Subchorionic hematoma in first trimester Patient Disposition: Home, Self-Care Time of Disposition Decision: 18:45 Condition: Good Prescriptions / Home Meds: No Action ondansetron 4 mg tablet,disintegrating 4 mg PO Q6H PRN (Reason: nausea and vomiting) Qty: 12 0RF Instructions: Threatened Miscarriage (ED) Additional Instructions: follow up with Randi Rojas on saturday05/06/23. repeat hcG quant to be obtained in 48 hours. off work until follow up in office, pelvic rest Stand Alone Forms: Portal Instructions Referrals: Physician,Non-Staff, [Primary Care Provider] - 1 week MICHELLE ROJAS APRN, CNM [Physician] - 1 week Discharge Date/Time: 05/03/23 18:56 Documented by User: Jeb Johnson MD 05/03/23 20:24 HPI - Female Genitourinary General Chief complaint: OB/Uterine Contractions Stated complaint: SPOTTING 10 WEEKS Time Seen by Provider: 05/03/23 14:56 Related Data Previous Rx's Medication Instructions Recorded ondansetron 4 mg disintegrating 4 mg PO Q6H PRN nausea and 01/18/24 tablet vomiting #12 tabs Allergies Allergy/AdvReac Type Severity Reaction Status Date / Time No Known Drug Allergies Allergy Verified 04/04/23 19:21 Exam Constitutional Vital Signs, click to edit/add: Last Vital Signs Temp 98.1 F 05/03/23 14:53 Pulse 89 05/03/23 18:54 Resp 14 05/03/23 18:54 BP 108/77 05/03/23 18:54 Pulse Ox 100 05/03/23 18:54 O2 Del Method Room Air 05/03/23 18:54 Course Vital Signs Vital signs: Vital Signs Temperature 98.1 F 05/03/23 14:53 Pulse Rate 107 H 05/03/23 14:53 Respiratory Rate 18 05/03/23 14:53 Blood Pressure 128/88 05/03/23 14:53 Pulse Oximetry 99 05/03/23 14:53 Oxygen Delivery Method Room Air 05/03/23 14:53 Temperature 98.1 F 05/03/23 14:53 Pulse Rate 89 05/03/23 18:54 Respiratory Rate 14 05/03/23 18:54 Blood Pressure 108/77 05/03/23 18:54 Pulse Oximetry 100 05/03/23 18:54 Oxygen Delivery Method Room Air 05/03/23 18:54 MDM - Female Genitourinary MDM Narrative Medical decision making narrative: Complaint of vaginal bleeding. She states she is approximately 10 weeks . She had 1 ultrasound approximately 1 to 2 weeks ago. Ultrasound showed a viable intrauterine with cervix closed, subchorionic hematoma. Patient's quant today shows greater 110,000. She Has had no bleeding or cramping while here in the emergency room. 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 ptwill be given Order for a repeat quant to have obtained in 2 days. 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 Radha Simmons PA-C spoke to MEDICAL BILLING MANAGER Dr. Lugo. He is aware of patient's lab work, and ultrasound findings. He agrees with plan of care. Patient will follow-up with roberto Rojas. Lab Data Labs: Lab Results 05/03/23 05/03/23 Range/Units 15:10 15:19 HCG, Quant [id number] mIU/mL Urine Color Lt. yellow (YELLOW) Urine Clarity Clear (CLEAR) Urine pH 6.5 (5.0-9.0) Ur Specific [place] 1.010 (1.005-1.025) Urine Protein Negative (NEG/TRACE) mg/dL Urine Glucose (UA) Negative (NEGATIVE) mg/dL Urine Ketones Negative (NEGATIVE) mg/dL Urine Occult Blood Negative (NEGATIVE) Urine Nitrite Negative (NEGATIVE) Urine Bilirubin Negative (NEGATIVE) Urine Urobilinogen 0.2 (0.2-1.0) EU/dL Ur Leukocyte Esterase Negative (NEGATIVE) Urine HCG, Qual Positive A (NEGATIVE) Blood Type O Negative Imaging Data US - abdomen: Radiologist's impression: ITS Impressions Ultrasound 05/03/23 14:58 IMPRESSION: Single live intrauterine fetus with gestational age of 11 weeks 6 days 3.2 cm subchorionic hematoma Electronically authenticated by: TRACY MCQUEEN Date: 05/03/2023 18:05 Discharge Plan Discharge Chief Complaint: OB/Uterine Contractions Clinical Impression: Vaginal bleeding in , Subchorionic hematoma in first trimester Patient Disposition: Home, Self-Care Time of Disposition Decision: 18:45 Condition: Good Prescriptions / Home Meds: No Action ondansetron 4 mg tablet,disintegrating 4 mg PO Q6H PRN (Reason: nausea and vomiting) Qty: 12 0RF Instructions: Threatened Miscarriage (ED) Additional Instructions: follow up with Randi Rojas on saturday05/06/23. repeat hcG quant to be obtained in 48 hours. off work until follow up in office, pelvic rest Stand Alone Forms: Portal Instructions Referrals: Physician,Non-Staff, MD [Primary Care Provider] - 1 week MICHELLE ROJAS APRN, CNM [Physician] - 1 week Discharge Date/Time: 05/03/23 18:56
[2023-05-03 18:54] VITALS: BP 108/77; PULSE 89; RESP 14; O2SAT 100
== END 2023-05-03 18:56 | disposition home or self-care (01) ==
PROVIDERS: Physician Assistant; Emergency Provider Emergency Medicine
DX: O20.9 Hemorrhage in early pregnancy, unspecified (principal); O43.891 Other placental disorders, first trimester; Z3A.10 10 weeks gestation of pregnancy
CPT/HCPCS: 36415; 76801; 81003; 84702; 84703; 86900; 86901; 96372; 99285; J2790

== ENCOUNTER 2023-07-27 18:03 | Emergency (ER) | payer OTHER, SELFPAY ==
[2023-07-27 18:09] VITALS: BP 127/76; PULSE 116; TEMP 36.8; O2SAT 98; BMI 32.6
[2023-07-27 18:13] VITALS: O2SAT 98
--- NOTE | 2023-07-27 18:17 | ECG_ITS ---
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
--- NOTE | 2023-07-27 18:17 | CT_ITS ---
The [address] [address] Patient Name: BETZY CELAYA MRN: [id number] date: 2000 Sex: F Assigned Patient Location: ER Current Patient Location: Accession/Order Number: [id number] Exam Date: 07/27/2023 18:48 Report Date: 07/27/2023 20:00 At the request of: LINH CORADO Procedure: CT angio chest EXAM: CT angio chest HISTORY: PE . Dyspnea, back chest rib pain. Clinical suspicion of pulmonary embolus. Patient is 23 weeks . Consent for exam obtained and signed by patient. COMPARISON: No prior CT. TECHNIQUE: CTA chest PE protocol. Axial scans including reformatted coronal and sagittal 3-D and MIP images. Individualized radiation dose reduction used for this exam. Contrast: 99 mL Omnipaque 350. FINDINGS: Pulmonary arteries: Normal enhancement without thrombus or embolus. Lungs/pleura: No consolidation or edema or other acute process. No pleural effusion or pneumothorax. Cardiac/mediastinum: Normal heart size. Normal size enhancement of the aorta. Anterior mediastinal soft tissue density consistent with thymus. No adenopathy seen. Normal central airways. Upper abdomen without acute abnormality, scan limited due to status and to reduce exposure to the fetus. Large amount of gas and fluid the stomach consistent with recent meal. Heterogeneous splenic enhancement typical for PE study. MUSCULOSKELETAL: No fracture or suspicious bone lesion. CT/CT angio chest IMPRESSION: Negative for pulmonary embolus or other acute abnormality in the chest. Electronically authenticated by: RADHA CELESTIN Date: 07/27/2023 20:00
--- NOTE | 2023-07-27 18:19 | ED.SOB1 ---
HPI - SOB/Dyspnea General Chief Complaint: Shortness of Breath/Dyspnea Stated Complaint: Shortness of Breath w/back pain, 23-wks Time Seen by Provider: 07/27/23 18:11 Source: patient Mode of arrival: walk-in Limitations: no limitations History of Present Illness HPI Narrative: Patient is a 22-year-old female who presents to the emergency department at 23 weeks of for increasing shortness of breath associated with right thoracic/scapular pain. She states the pain increased today. No Tylenol taken prior to arrival. She has had no fevers, hemoptysis or congestion. She has had a mild cough. No vomiting or diarrhea. She denies any history of heart or lung problems. She has not had any leg swelling. Pain is worse with deep breathing, she denies any falls or injuries. Related Data Previous Rx's ?Medication ?Instructions ?Recorded albuterol sulfate 90 mcg/actuation 2 inh inhalation Q4H PRN shortness 07/27/23 aerosol inhaler of breath or wheezing #8.5 grams Allergies Allergy/AdvReac Type Severity Reaction Status Date / Time No Known Drug Allergies Allergy Verified 04/04/23 19:21 Review of Systems ROS Constitutional Denies: fever or chills Ears, nose, mouth, and throat Denies: throat pain or nasal congestion Cardiovascular Denies: chest pain Respiratory Reports: shortness of breath, cough and pain on inspiration Gastrointestinal Denies: nausea or vomiting Musculoskeletal Reports: back pain; Denies: neck pain Integumentary/Breast Denies: rash Neurological Denies: headache Hematologic/Lymphatic Denies: easy bruising or easy bleeding Exam Narrative Exam Narrative: Gen.: Awake, alert, in no distress Head: Normocephalic, atraumatic ENT: Moist mucous membranes Respiratory: No respiratory distress, lungs clear bilaterally; no wheezing or rhonchi Cardio: Tachycardia Extremities: Moves extremities equally, no pedal edema Back: No bony tenderness of the thoracic spine, mild tenderness of the right scapula Psych: Normal mood and affect Neuro: No focal neuro deficit Skin: Warm, dry, intact Constitutional Vital Signs, click to edit/add: Last Vital Signs Temp 98.3 F 07/27/23 18:09 Pulse 106 H 07/27/23 18:56 Resp 24 H 07/27/23 18:56 BP 118/75 07/27/23 18:56 Pulse Ox 99 07/27/23 18:56 O2 Del Method Room Air 07/27/23 18:13 Course Vital Signs Vital signs: Vital Signs Temperature 98.3 F 07/27/23 18:09 Pulse Rate 116 H 07/27/23 18:09 Respiratory Rate 20 07/27/23 18:09 Blood Pressure 127/76 07/27/23 18:09 Pulse Oximetry 98 07/27/23 18:09 Temperature 98.3 F 07/27/23 18:09 Pulse Rate 106 H 07/27/23 18:56 Respiratory Rate 24 H 07/27/23 18:56 Blood Pressure 118/75 07/27/23 18:56 Pulse Oximetry 99 07/27/23 18:56 Oxygen Delivery Method Room Air 07/27/23 18:13 MDM - SOB/Dyspnea MDM Narrative Medical decision making narrative: Laboratory studies reviewed and noted within normal limits. Patient treated with IV fluids. Tachycardia improved. She is in no respiratory distress in the ER and maintains normal oxygen saturation with no wheezing. Discussed a CTA of the chest as the patient is having pleuritic pain and is tachycardic and short of breath in . She is agreeable to CT angio, she understands the risks of radiation and gave consent for this procedure. EKG, CT angio of the chest are unremarkable and the patient is discharged home to follow-up with PCP. Return to the ER if symptoms change or worsen Medical Records Attestation: I reviewed the patient's medical records. Lab Data Attestation: I reviewed the patient's lab results. Labs: Lab Results 07/27/23 Range/Units 18:21 WBC 14.9 H (4.0-11.0) 10^3/uL RBC 3.71 L (4.20-5.40) 10^6/uL Hgb 11.6 L (12.0-16.0) g/dL Hct 33.9 L (36.0-48.0) % MCV 91.4 (81.0-99.0) fL MCH 31.3 (26.7-34.0) pg MCHC 34.2 (29.9-35.2) g/dL RDW 13.8 (11.0-15.0) % Plt Count 292 (150-450) 10^3/uL MPV 9.1 L (9.5-13.5) fL Neut % (Auto) 73.6 (43.0-75.0) % Lymph % (Auto) 17.9 L (20.5-60.0) % Fajardo % (Auto) 6.6 (1.7-12.0) % Eos % (Auto) 0.7 L (0.9-7.0) % Baso % (Auto) 0.3 (0.2-2.0) % Neut # (Auto) 11.0 H (1.4-6.5) 10^3/uL Lymph # (Auto) 2.7 (1.2-3.8) 10^3/uL Fajardo # (Auto) 1.0 H (0.3-0.8) 10^3/uL Eos # (Auto) 0.1 (0.0-0.7) 10^3/uL Baso # (Auto) 0.1 (0.0-0.1) 10^3/uL Abs Immat Gran (auto) 0.13 H (0.00-0.03) 10^3/uL Imm/Tot Granulo (auto) 0.9 H (0.0-0.5) % PT 9.8 (9.0-11.6) sec INR <0.93 VBG pH 7.423 (7.330-7.430) VBG pCO2 34.9 L (40.0-52.0) mmHg Sodium 137 (136-145) mmol/L Potassium 3.6 (3.5-5.1) mmol/L Chloride 103 (98-107) mmol/L Carbon Dioxide 22.4 (21.0-32.0) mmol/L Anion Gap 15.2 BUN 6.0 L (7.0-18.0) mg/dL Creatinine 0.62 (0.55-1.02) mg/dL Est GFR ( Amer) >60 (>=60) Est GFR (Non-Af Amer) >60 (>=60) BUN/Creatinine Ratio 9.7 Glucose 96 (74-106) mg/dL Calcium 9.0 (8.5-10.1) mg/dL Total Bilirubin 0.2 (0.2-1.0) mg/dL AST 9 L (15-37) U/L ALT 13 L (14-59) U/L Alkaline Phosphatase 95 (46-116) U/L Troponin I High Sens <4.0 L (4.0-51.3) pg/mL NT-Pro-B Natriuret Pep 29.0 (<=450.0) pg/mL Total Protein 6.8 (6.4-8.2) g/dL Albumin 2.9 L (3.4-5.0) g/dL Globulin 3.9 g/dL Albumin/Globulin Ratio 0.[address] scan - chest: Attestation: I have reviewed the pertinent imaging results. Radiologist's impression: ITS Impressions Chest CTA 07/27/23 18:17 IMPRESSION: Negative for pulmonary embolus or other acute abnormality in the chest. Electronically authenticated by: RADHA CELESTIN Date: 07/27/2023 20:00 ECG Data Attestation: I personally reviewed and interpreted this ECG as follows: (Sinus tachycardia at a rate of 108, no acute ST elevation or ectopy. EKG reviewed by attending physician) Discharge Plan Discharge Stand Alone Forms: Portal Instructions Chief Complaint: Shortness of Breath/Dyspnea Clinical Impression: Shortness of breath Patient Disposition: Home, Self-Care Time of Disposition Decision: 20:11 Condition: Good Prescriptions / Home Meds: New albuterol sulfate 90 mcg/actuation HFA aerosol inhaler 2 inh inhalation Q4H PRN (Reason: shortness of breath or wheezing) Qty: 8.5 0RF Print Language: [place] Instructions: Shortness of Breath (ED) Referrals: Physician,Non-Staff, MD [Primary Care Provider] - 1 week Discharge Date/Time: 07/27/23 20:20
--- OUTSIDE RECORDS SUMMARY | 2023-07-27 18:19 | XMS_ITS | CCD ---
Author Organization [facility] Care Team Providers Care First Aid Officer Name Role Phone Zandra Ellison Unavailable DR TRESSA SANDOVAL Admitting Unavailable DR ADDI BAEZ Primary Care Unavailable DR TRESSA SANDOVAL Attending Unavailable Marylou Curtis Unavailable BARRINGTON Curtis Attending Provider Marylou Curtis Attending Unavailable Marylou Curtis Admitting Unavailable Addi Baez Primary Care Unavailable Unavailable Primary Care Provider UnavailMICHELLE Engle Attending Unavailable MICHELLE ROJAS Attending Unavailable MICHELLE ROJAS Attending Unavailable MICHELLE ROJAS Attending Unavailable MICHELLE ROJAS Referring Unavailable MICHELLE ROJAS Attending Unavailable Allergies Allergy Classification Reported Allergen(s) Allergy Type Date of Onset Reaction(s) Facility (3 sources) dairy Propensity to adverse reactions diarrhea [facility] Other (1 source) Milk Drug allergy (disorder) [address] [place] [address] Repository Medications Current Medications Medication Drug Class(es) [...] Test Name Value Interpretation Reference Range Facility [facility] 14+ WEEKS ANATOMY SCAN on 07-05-2023 US OB 14+ WEEKS ANATOMY SCAN FINDINGS: A single, live intrauterine is present with normal cardiac rate of 141 beats per minute. Normal activity and amniotic fluid volume. Amniotic fluid index is 14.0 cm. Morphology is grossly normal. The cervix is long and closed, 4.4 cm. The placenta is anterior, not associated with the cervical os. The current sonographic age is 20 weeks and 2 days, based on the following measurements: BPD 4.8 cm (20 weeks, 0 days) Head Circumference 18.1 cm ( 20 weeks, 3 days) Abdominal Circumference 15.3 cm (20 weeks, 4 days) Femur Length 3.4 cm (20 weeks, 4 days) Presentation Breech Placenta Anterior These measurements result in an estimated date of delivery of November 18, 2023 The current estimated weight is 361 grams +/- grams ( pound, 13 ounces). Weight by percentile 75.5% IMPRESSION: Single, live intrauterine , current sonographic age of 20 weeks and2 days, with an estimated date of delivery of November 18, 2023. TRANSCRIBED BY: ELECTRONICALLY SIGNED BY: Thomas Moran MD Normal Not Available Vaginitis Plus (VG+)on 02-06 Atopobium Vaginae High - 2 Critically abnormal . [facility] Comment on above: Order Comment: Reason for Exam Vaginal o rahsel Performed By: #### V AGINITIS+ #### [facility] , BVAB2 High - 2 Critically abnormal . [facility] Comment on above: Order Comment: Reason for Exam Vaginal o rashel Performed By: #### V AGINITIS+ #### [facility] , Gayle Albicans, EH Negative Normal Negative [facility] Comment on above: Order Comment: Reason for Exam Vaginal o rashel Result Comment: This test was developed and its performance characteristics determined by [facility]. It has not been cleared or approved by the Food and Drug Administration. Performed By: #### V AGINITIS+ #### [facility] , Gayle Glabrata, EH Negative Normal Negative [facility] Comment on above: Order Comment: Reason for Exam Vaginal o rashel Result Comment: This test was developed and its performance characteristics determined by [facility]. It has not been cleared or approved by the Food and Drug Administration. PERFORMED BY: [facility] [address] [place] [address] PATHOLOGIST SALES PRODUCER JOHN MONREAL M.D. Performed By: #### V AGINITIS+ #### [facility] , Chlamydia Trachomotis, EH Negative Normal Negative [facility] Comment on above: Order Comment: [...] , Neisseria Gonorrhoeae, EH Negative Normal Negative [facility] Comment on above: Order Comment: Reason for Exam Vaginal o rashel Result Comment: Perf ormed at: =G - [facility] [address] [id number] Application Administrator: Mame Sheth MD, Phone: [phone] Performed By: #### V AGINITIS+ #### [facility] , Tric Vag EH Negative Normal Negative [facility] Comment on above: Order Comment: Reason for Exam Vaginal o rashel Performed By: #### V AGINITIS+ #### [facility] , Quick Strepon 12-29-2021 S. pyogenes Org specific cx Ql (Throat) Negative [facility] Other Quick Strep [facility] Other SARS-CoV-2 (COVID-19) RNA NA A+probe Ql (Resp)on 12-29-2021 SARS-CoV-2 (COVID-19) RNA EH+probe Ql (Unsp spec) Negative [facility] Other Vital Signs Date Time Vital Sign Value Performing Clinician Facility 05-01-2023 11:15-0500 Body height 162.6 cm Michelle Wattioo CN Work Phone: [facility] 05-01-2023 10:30-0500 Body mass index (BMI) [Ratio] 30.55 kg/m2 Michelle Wattioo CN Work Phone: [facility] 05-01-2023 10:30-0500 Body weight 80.74 kg Michelle Schustero CN Work Phone: [facility] 05-01-2023 10:30-0500 Diastolic blood pressure 70 mm[Hg] Michelle Wattioo CN Work Phone: [facility] 05-01-2023 10:30-0500 Systolic blood pressure 114 mm[Hg] Michelle Wattioo CN Work Phone: [facility] 02-06-2023 14:50-0500 Body height 162.56 cm Marylou Curtis Other [facility] Other 12-29-2021 19:20-0400 Body height 162.56 cm Zandra Ellison Other [facility] Other 12-29-2021 19:20-0400 Body mass index (BMI) [Ratio] 26.6 kg/m2 Zandra Ellison Other [facility] Other 12-29-2021 19:20-0400 Body temperature 98.9 [degF] Zandra Ellison Other [facility] Other 12-29-2021 19:20-0400 Body weight 70.31 kg Zandra Ellison Other [facility] Other 12-29-2021 19:20-0400 Respiratory rate 18 /min Zandra Ellison Other [facility] Other 12-29-2021 19:20-0400 SaO2% (BldA) [Mass fraction] 97 % Zandra Ellison Other [facility] Other Encounters Encounter Date Encounter Type Care Provider Facility Start: 07-24-2023 ambulatory MICHELLE L FLORO Not [place] Start: 07-05-2023 End: 07-06-2023 ambulatory MICHELLE L FLORO Not Available Start: 06-26-2023 End: 06-27-2023 ambulatory MICHELLE L FLORO Not Available Start: 05-29-2023 End: 05-30-2023 ambulatory MICHELLE L FLORO Not Available Start: 05-01-2023 Bamboo flowsheet Michelle L Ac ro CNM Work Phone: [facility] Start: 05-01-2023 Bamboo flowsheet Michelle L Ac ro CNM Work Phone: [facility] Start: 05-01-2023 End: 05-02-2023 ambulatory MICHELLE L FLORO Not Available Start: 05-01-2023 End: 05-01-2023 Initial care visit Michelle L Floro CNM Work Phone: [facility] Comment on above: examinatio n or test, positive result (Primary Dx); Encounter for care of first , second trimester Start: 04-17-2023 End: 04-18-2023 ambulatory MICHELLE ROJAS Not Available Start: 02-17-2023 End: 02-17-2023 ambulatory Marylou Curtis Other [facility] Other Start: 02-17-2023 Telephone encounter Marylou Curtis [facility] Start: 02-06-2023 End: 02-06-2023 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 Marylou Curtis Work Phone: [facility] [place] Work Phone: Start: 02-06-2023 End: 02-06-2023 ambulatory Marylou Curtis [facility] Work Phone: Start: 02-06-2023 Office outpatient vi sit 15 minutes Marylou Curtis [facility] Start: 12-29-2021 End: 12-29-2021 ambulatory Zandra Ellison Other [facility] Other Start: 12-29-2021 Office outpatient vi sit 15 minutes Zandra Ellison [facility] Start: 01-10-2021 End: 01-10-[address] TRESSA SANDOVAL Facility: Plan of Treatment Date Care Activity Detail Author Start: 05-29-2023 End: 05-29-2023 Patient encounter procedure 05/29/2023 10:30 AM EDT Routine [facility] [address] [place] [address] Michelle Rojas, SHAUNNAM [address] [place] [address] [facility] Start: 05-01-2023 End: 05-01-2024 Bacteria identified in Urine by Culture Urine culture Microbiology Routine examination or test, positive result Encounter for care of first , second trimester Expected: 05/01/2023 (Approximate), Expires: 05/01/2024 [facility] Comment on above: Expected: 05/01/2023 (Approximate), Expires: 05/01/2024 Start: 05-01-2023 End: 05-01-2024 DRUG TOX MONITORIGN 6 W/ CONF,URINE DRUG TOX MONITORIGN 6 W/ CONF,URINE Lab Routine examination or test, positive result Encounter for care of first , second trimester Expected: 05/01/2023 (Approximate), Expires: 05/01/2024 [facility] Comment on above: Expected: 05/01/2023 (Approximate), Expires: 05/01/2024 Start: 05-01-2023 End: 05-01-2024 Neisseria gonorrhoeae DNA [Presence] in Cervical mucus by EH with probe detection C. trachomatis / N. gonorrhoeae, DNA probe Lab Routine examination or test, positive result Encounter for care of first , second trimester Expected: 05/01/2023 (Approximate), Expires: 05/01/2024 [facility] Comment on above: Expected: 05/01/2023 (Approximate), Expires: 05/01/2024 Start: 05-01-2023 End: 05-01-2024 QHERIT(TM) EXPANDED CARRIER SCREEN QHERIT(TM) EXPANDED CARRIER SCREEN Lab Routine Encounter for care of first , second trimester Expected: 05/01/2023 (Approximate), Expires: 05/01/2024 [facility] Comment on above: Expected: 05/01/2023 (Approximate), Expires: 05/01/2024 Start: 05-01-2023 End: 05-01-2024 QNATAL(R) ADVANCED QNATAL(R) ADVANCED Lab Routine Encounter for care of first , second trimester Expected: 05/01/2023 (Approximate), Expires: 05/01/2024 [facility] Comment on above: Expected: 05/01/2023 (Approximate), Expires: 05/01/2024 Start: 05-01-2023 End: 05-01-2024 TSH W/REFLEX TO FT4 TSH W/REFLEX TO FT4 Lab Routine examination or test, positive result Encounter for care of first , second trimester Expected: 05/01/2023 (Approximate), Expires: 05/01/2024 [facility] Comment on above: Expected: 05/01/2023 (Approximate), Expires: 05/01/2024 Start: 05-01-2023 End: 05-01-2024 URINALYSIS MICROSCOPIC URINALYSIS MICROSCOPIC Lab Routine examination or test, positive result Encounter for care of first , second trimester Expected: 05/01/2023 (Approximate), Expires: 05/01/2024 [facility] Comment on above: Expected: 05/01/2023 (Approximate), Expires: 05/01/2024 Start: 05-01-2023 End: 05-01-2023 Patient encounter procedure 05/01/2023 10:30 AM EST Routine [facility] [address] [place] [address] Michelle Rojas CNM [address] [place] [address] Arrived [facility] Comment on above: Arrived ABO/Rh ABO/Rh Lab Routi ne examination or test, positive result Encounter for care of first , second trimester Ordered: 05/01/2023 [facility] Comment on above: Ordered: 05/01/2023 Antibody screen Antibody screen Lab Routine examination or test, positive result Encounter for care of first , second trimester Ordered: 05/01/2023 [facility] Comment on above: Ordered: 05/01/2023 Atopobium vaginae DN A [Presence] in Vaginal fluid by EH with probe detection [facility] Bacterial vaginosis associated bacterium 2 DNA [Presence] in Vaginal fluid by EH with probe detection [facility] CBC panel - Blood by Automated count CBC Lab Routine examination or test, positive result Encounter for care of first , second trimester Ordered: 05/01/2023 [facility] Comment on above: Ordered: 05/01/2023 Hemoglobin A1c measurement Hemoglobin A1c Lab Routine examination or test, positive result Encounter for care of first , second trimester Ordered: 05/01/2023 [facility] Comment on above: Ordered: 05/01/2023 Hepatitis B virus surface Ag [Presence] in Serum or Plasma by Immunoassay Hepatitis B surface antigen Lab Routine examination or test, positive result Encounter for care of first , second trimester Ordered: 05/01/2023 [facility] Work Phone: Comment on above: Ordered: 05/01/2023 Hepatitis C virus Ab [Presence] in Serum or Plasma by Immunoassay Hepatitis C antibody Lab Routine examination or test, positive result Encounter for care of first , second trimester Ordered: 05/01/2023 [facility] Comment on above: Ordered: 05/01/2023 HIV-1/HIV-2 antigen/antibody combination immunoassay HIV-1 and HIV-2 antibodies Lab Routine examination or test, positive result Encounter for care of first , second trimester Ordered: 05/01/2023 [facility] Comment on above: Ordered: 05/01/2023 Megasphaera sp type 1 DNA [Presence] in Vaginal fluid by EH with probe detection [facility] Reagin Ab [Presence] in Serum by RPR RPR Lab Routine examination or test, positive result Encounter for care of first , second trimester Ordered: 05/01/2023 [facility] Comment on above: Ordered: 05/01/2023 Rubella antibody, IgG Rubella an tibody, IgG Lab Routine examination or test, positive result Encounter for care of first , second trimester Ordered: 05/01/2023 [facility] Comment on above: Ordered: 05/01/2023 [facility] Payers Date Payer Category Payer Medicaid [employer] [facility] [id number] 2023-Present [address] [address] [place] [address] [id number] 2023 Unknown [employer] [id number] 2023-Present [address] [address] [place] [address] [id number] 2023 Self-pay [id number] 2023 Unknown [id number] 2000 Unknown [id number] 593 2000 Unknown [id number] [id number]. 1259 2000 Unknown [id number] [id number]. 1259 2000 Unknown [id number] [id number]. 1259 2000 Unknown [id number]. 9 2000 Unknown [id number] [id number]. 1259 2000 Unknown [id number] [id number]. 1259 2000 Unknown [id number] [id number]. 1259 1959 Private Health Insurance [id number] 1959 Unknown [id number] 1959 Unknown [id number] Unknown [id number]. 531 Social History Date Type Detail Facility Unknown if ever smoked [facility] [employer] Other Start: 04-17-2023 Sex Assigned At N [facility] [employer] Other Start: 2000 Sex Assigned At Female F [facility] Start: 04-17-2023 Tobacco smoking status NHIS Ex-smoker [...] Sex Assigned At Not on file [facility] History of Present illness Narrative 05-01-2023 Michelle Rojas, SHAUNNA - 05/01/2023 10:30 AM EST Note Date & Type Note Facility 05-01-2023 History of Presen t illness Narrative Subjective No chief complaint on file. Betzy Celaya is a 22 y.o. at 10w5d with [...] condoms. Jan, Vaginal discharge (ICD-10 - N89.8) [facility] Other Evaluation note 12-29-2021 Note Date & [...] with PCP if febrile or new/worsening s/s. [facility] Other Evaluation note Note Date & Type Note Facility Evaluation note No assessment information [facility] Work Phone: Evaluation note Note Date & Type Note Facility Evaluation note No Information [facility] Other Evaluation note Note Date & Type [...] oral surgery Hospitalization History Viral Infection 2011 [facility] Other Summary Purpose Family History No Family History Records FoundNo Family History Records FoundNo Family History Records Found Advance Directives No Advanced Directives Records Found Advance Directive Response Recorded Date/ Time Advance Directives No October 10 9:40am Chief Complaint and Reason for Visit Chief Complaint Vaginal odor Reason for Referral Specialty Diagnoses / Procedures Referred By Contac t Referred To Contact Obstetrics and Gynecology Diagnoses examination or test, positive result Encounter for care of first , second trimester Procedures [place] OFFICE/OUTPATIENT NEW HIGH MDM 60 MINUTES Michelle Rojas CNM [address] [place] [address] Michelle Rojas CNM [address] [place] [address] Referral ID Status Reason Start Date Expiration Date Visits Requested Visits Authorized [id number] Pending Review Specialty Services Required 05/01/2023 10/28/2023 1 1 Additional Source Comments REASON FOR VISIT (unrecogniz ed section and content) COUGH, CONGESTION, B/A, CHIL LSBACTERIAL VAGINITIS CHECKNo Information INFORMATION SOURCE (unrecogn ized section and content) DATE CREATED AUTHOR 01/20/2022 [facility] DATE CREATED AUTHOR AUTHOR'S ORGANIZ ATION 04/26/2023 [facility] DATE CREATED AUTHOR AUTHOR'S ORGANIZ ATION 07/26/2023 [facility] Special[facility] EPIC Care Teams (unrecognized sec [...] BE BASED ON THE PRIMARY CLINICAL RECORDS. [facility]. provides no warranty or guarantee of the accuracy or completeness of information in this document.
[2023-07-27] MEDS: ACETAMINOPHEN 500 MG TABLET 1000 MG PO (18:23)
[2023-07-27] MEDS: 0.9 % SODIUM CHLORIDE 1,000 ML 1000 ML IV (18:23)
[2023-07-27 18:24] VITALS: PULSE 113; O2SAT 96
[2023-07-27 18:29] LABS: PCO2 VBG 34.9 mmHg (40.0-52.0); pH VBG 7.423 (7.330-7.430)
[2023-07-27 18:30] VITALS: PULSE 107; O2SAT 97
[2023-07-27 18:30] LABS: Basophils Absolute Auto 0.1 10^3/uL (0.0-0.1); Basophils Percent Auto 0.3 % (0.2-2.0); Eosinophils Absolute Auto 0.1 10^3/uL (0.0-0.7); Eosinophils Percent Auto 0.7 % (0.9-7.0); Hematocrit 33.9 % (36.0-48.0); Hemoglobin 11.6 g/dL (12.0-16.0); Immature Granulocytes Abs Auto 0.13 10^3/uL (0.00-0.03); Immature Granulocytes Pct Auto 0.9 % (0.0-0.5); Lymphocytes Absolute Auto 2.7 10^3/uL (1.2-3.8); Lymphocytes Percent Auto 17.9 % (20.5-60.0); Mean Corpuscular HGB Conc 34.2 g/dL (29.9-35.2); Mean Corpuscular Hemoglobin 31.3 pg (26.7-34.0); Mean Corpuscular Volume 91.4 fL (81.0-99.0); Mean Platelet Volume 9.1 fL (9.5-13.5); Monocytes Percent Auto 6.6 % (1.7-12.0); Neutrophils Percent Auto 73.6 % (43.0-75.0); Platelet Count 292 10^3/uL (150-450); Red Blood Count 3.71 10^6/uL (4.20-5.40); Red Cell Distribution Width 13.8 % (11.0-15.0); White Blood Count 14.9 10^3/uL (4.0-11.0)
[2023-07-27 18:42] LABS: Prothrombin Time 9.8 sec (9.0-11.6)
[2023-07-27 18:45] LABS: INR <0.93
[2023-07-27 18:52] VITALS: PULSE 109
[2023-07-27 18:56] VITALS: BP 118/75; PULSE 106; O2SAT 99
[2023-07-27 19:03] LABS: Alanine Aminotransferase 13 U/L (14-59); Albumin Globulin Ratio 0.7; Albumin Level 2.9 g/dL (3.4-5.0); Alkaline Phosphatase 95 U/L (46-116); Anion Gap 15.2; Aspartate Amino Transferase 9 U/L (15-37); BUN Creatinine Ratio 9.7; Bilirubin Total 0.2 mg/dL (0.2-1.0); Carbon Dioxide 22.4 mmol/L (21.0-32.0); Chloride 103 mmol/L (98-107); Estimated GFR (African America >60 (>=60); Estimated GFR (Non-African Ame >60 (>=60); Globulin 3.9 g/dL; Glucose 96 mg/dL (74-106); Potassium 3.6 mmol/L (3.5-5.1); Sodium 137 mmol/L (136-145); Total Protein 6.8 g/dL (6.4-8.2); Troponin I High Sensitivity <4.0 pg/mL (4.0-51.3)
== END 2023-07-27 20:20 | disposition home or self-care (01) ==
PROVIDERS: Physician Assistant; Emergency Provider Internal Medicine
DX: O99.891 Other specified diseases and conditions complicating pregnancy (principal); R06.02 Shortness of breath; Z3A.23 23 weeks gestation of pregnancy
CPT/HCPCS: 36415; 71275; 80053; 82800; 83880; 84484; 85025; 85610; 93005; 99285; Q9967

== ENCOUNTER 2023-10-02 07:49 | Outpatient (RCR) | payer OTHER, SELFPAY ==
[2023-10-02 10:39] VITALS: BP 109/73; PULSE 96; TEMP 36.4; O2SAT 96
[2023-10-02] MEDS: RHO(D) IMMUNE GLOBULIN 1,500 UNIT SYRINGE 1500 UNIT IM (12:10)
== END 2023-10-16 23:59 | disposition home or self-care (01) ==
LOC: INF 07:49
PROVIDERS: Visit Provider Midwife
DX: O26.893 Other specified pregnancy related conditions, third trimester (principal); Z67.91 Unspecified blood type, Rh negative; Z3A.00 Weeks of gestation of pregnancy not specified
CPT/HCPCS: 36415; 86850; 86900; 86901; 96372; J2790

== ENCOUNTER 2023-11-07 14:08 | Inpatient (IN) | payer OTHER, SELFPAY ==
[2023-11-07] VITALS (35 sets, daily range): BP systolic 106–140; BP diastolic 53–80; PULSE 70–127; TEMP 35.9–37.1
--- OUTSIDE RECORDS SUMMARY | 2023-11-07 14:14 | XMS_ITS | CCD ---
Author Organization [facility] Care Team Providers Care [employer]ator Name Role Phone Zandra Ellison Unavailable DR TRESSA SANDOVAL Admitting Unavailable BAEZ, DR ADDI Coto Primary Care Unavailable DR TRESSA SANDOVAL Attending Unavailable Marylou Curtis Unavailable [place] Curtis Attending Provider Marylou Curtis Attending Unavailable Marylou Curtis Admitting Unavailable Addi Baez Primary Care Unavailable Unavailable Primary Care Provider UnavailADDI Odom Primary Care Unavailable FLORO, MICHELLE L Attending Unavailable FLORO, MICHELLE L Attending Unavailable FLORO, MICHELLE L Attending Unavailable FLORO, MICHELLE L Attending Unavailable FLORO, MICHELLE L Referring Unavailable FLORO, MICHELLE L Attending Unavailable FLORO, MICHELLE L Attending Unavailable FLORO, MICHELLE L Attending Unavailable FLORO, MICHELLE L Referring Unavailable FLORO, MICHELLE L Attending Unavailable FLORO, MICHELLE L Attending Unavailable FLORO, MICHELLE L Attending Unavailable FLORO, MICHELLE L Attending Unavailable Allergies Allergy Classification Reported Allergen(s) Allergy Type Date of Onset Reaction(s) Facility (3 sources) dairy Propensity to adverse reactions diarrhea [facility] Other (1 source) Milk Drug allergy (disorder) 3 [facility] Repository Medications Current Medications Medication Drug [...] Value Interpretation Reference Range Facility US OB FOLLOW UP TRANSABDOMIN AL APPROACHon 09-17-2023 US OB FOLLOW UP TRANSABDOMINAL APPROACH FINDINGS: A single, live intrauterine is present with normal cardiac rate of 136 beats per minute. Normal activity and amniotic fluid volume. Amniotic fluid index is 15.0 cm. Morphology is grossly normal. The cervix is long and closed, 4.4cm. The placenta is anterior, Grade 1not associated with the cervical os. The current sonographic age is 30 weeks and 5 days, based on the following measurements: BPD 7.6 cm (30 weeks, 5 days) Head Circumference 28.1cm ( 30weeks, 5 days) Abdominal Circumference 26.5cm (30 weeks, 5 days) Femur Length 6.0cm ( 31weeks, 0 days) Presentation Cephalic Placenta Anterior, Grade 1 Weight (g) by Percentile 44.4% * These measurements result in an estimated date of delivery of November 21, 2023 The current estimated weight is 1638 grams ( 3 pound, 10 ounces). IMPRESSION: Single, live intrauterine , current sonographic age of 30 weeks and 5 days, with an estimated date of delivery of November 21, 2023. * Estimated Weight (g) by Percentile is based upon an accurate estimated age based on last menstrual period. TRANSCRIBED BY: ELECTRONICALLY SIGNED BY: Thomas Moran MD Normal Not Available US OB 14+ WEEKS ANATOMY SCAN on [...] Vaginae High - 2 Critically abnormal . [facility] Comment on above: Order Comment: Reaso n for Exam Vaginal odor Performed By: #### V AGINITIS+ #### [facility] , BVAB2 High - 2 Critically abnormal . [facility] Comment on above: Order Comment: Reaso n for Exam Vaginal odor Performed By: #### V AGINITIS+ #### [facility] , Gayle Albicans, EH Negative Normal Negative [facility] Comment on above: Order Comment: Reaso n for Exam Vaginal odor Result Comment: This test was developed and its performance characteristics determined by [facility]. It has not been cleared or approved by the Food and Drug Administration. Performed By: #### V AGINITIS+ #### [facility] , Gayle Glabrata, EH Negative Normal Negative [facility] Comment on above: Order Comment: Reaso n for Exam Vaginal odor Result Comment: This test was developed and its performance characteristics determined by [facility]. It has not been cleared or approved by the Food and Drug Administration. PERFORMED BY: [facility] [place] [address] PATHOLOGIST SWIMMER JOHN MONREAL M.D. Performed By: #### V AGINITIS+ #### [facility] , Chlamydia Trachomotis, EH Negative Normal Negative [facility] Comment on above: Order Comment: Reaso n for Exam Vaginal odor Performed By: #### V AGINITIS+ #### [facility] , Megasphaera High - 2 Critically abnormal . [facility] Comment on above: Order Comment: Reaso n for Exam Vaginal odor Result Comment: Calc ulate total score by [...] , Neisseria Gonorrhoeae, EH Negative Normal Negative [facility] Comment on above: Order Comment: Reaso n for Exam Vaginal odor Result Comment: Perf ormed at: =G - [facility] [address] [id number] Supervisor Drying: Mame Sheth MD, Phone: [phone] Performed By: #### V AGINITIS+ #### [facility] , Tric Vag EH Negative Normal Negative [facility] Comment on above: Order Comment: Reaso n for Exam Vaginal odor Performed By: #### V AGINITIS+ #### [facility] , Quick Strepon 12-29-2021 S. pyogenes Org specific cx Ql (Throat) Negative [facility] Other Quick Strep [facility] Other SARS-CoV-2 (COVID-19) RNA NA A+probe Ql (Resp)on 12-29-2021 SARS-CoV-2 (COVID-19) RNA EH+probe Ql (Unsp spec) Negative [facility] Other Vital Signs Date Time Vital Sign Value Performing Clinician Facility 05-01-2023 11:15-0500 Body height 162.6 cm Michelle Schustero CN Work Phone: [facility] 05-01-2023 10:30-0500 Body mass index (BMI) [Ratio] 30.55 kg/m2 [facility] Work Phone: [facility] 05-01-2023 10:30-0500 Body weight 80.74 kg Michelle [employer] CNM Work Phone: [facility] 05-01-2023 10:30-0500 Diastolic blood pressure 70 mm[Hg] [facility] Work Phone: [facility] 05-01-2023 10:30-0500 Systolic blood pressure 114 mm[Hg] [facility] CNM Work Phone: [facility] 02-06-2023 14:50-0500 Body height 162.56 cm Marylou Curtis Other [facility] Other 12-29-2021 19:20-0400 Body height 162.56 cm Zandra Ellison Other [facility] Other 12-29-2021 19:20-0400 Body mass index (BMI) [Ratio] 26.6 kg/m2 Zandra Ellison Other [facility] Other 12-29-2021 19:20-0400 Body temperature 98.9 [degF] Zandra Ellison Other [facility] Other 12-29-2021 19:20-0400 Body weight 70.31 kg Zandra Ellison Other [facility] Other 12-29-2021 19:20-0400 Respiratory rate 18 /min Zandra Ellison Other [facility] Other 12-29-2021 19:20-0400 SaO2% (BldA) [Mass fraction] 97 % Zandra Ellison Other [facility] Other Encounters Encounter Date Encounter Type Care Provider Facility Start: 11-05-2023 ambulatory MICHELLE L FLORO Not [place] [facility] Start: 10-29-2023 End: 10-29-2023 ambulatory MICHELLE L FLORO Not Available Start: 10-22-2023 End: 10-22-2023 ambulatory MICHELLE L FLORO Not Available Start: 10-15-2023 End: 10-15-2023 ambulatory [facility] Start: 10-01-2023 End: 10-01-2023 ambulatory MICHELLE L FLORO Not Available Start: 09-17-2023 End: 09-17-2023 ambulatory MICHELLE L FLORO Not Available Start: 09-03-2023 End: 09-03-2023 ambulatory MICHELLE L FLORO Not Available Start: 08-21-2023 End: 08-21-2023 ambulatory MICHELLE L FLORO Not Available Start: 07-24-2023 End: 07-24-2023 ambulatory MICHELLE L FLORO Not Available Start: 07-05-2023 End: 07-05-2023 ambulatory MICHELLE L FLORO Not Available Start: 06-26-2023 End: 06-26-2023 ambulatory MICHELLE L FLORO Not Available Start: 05-29-2023 End: 05-29-2023 ambulatory MICHELLE L FLORO Not Available Start: 05-01-2023 Bamboo flowsheet Michelle L Ac ro CNM Work Phone: [facility] Start: 05-01-2023 Bamboo flowsheet Michelle L Ac ro CNM Work Phone: [facility] Start: 05-01-2023 End: 05-01-2023 Initial care visit Michelle Rojas CN Work Phone: [facility] Comment on above: examinatio n or test, positive result (Primary Dx); Encounter for care of first , second trimester Start: 05-01-2023 End: 05-01-2023 ambulatory MICHELLE ROJAS Not Available Start: 04-17-2023 End: 04-17-2023 ambulatory MICHELLE ROJAS Not Available Start: 02-17-2023 End: 02-17-2023 ambulatory Marylou Curtis Other [facility] Other Start: 02-17-2023 Telephone encounter Marylou Curtis [facility] Start: 02-06-2023 End: 02-06-2023 Departed Referred PRODUCTION REPAIRER-C Marylou Curtis Work Phone: [facility] [place] Work Phone: Start: 02-06-2023 End: 02-06-2023 ambulatory Marylou Curtis [facility] Work Phone: Start: 02-06-2023 Office outpatient vi sit 15 minutes Marylou Curtis [facility] Start: 12-29-2021 End: 12-29-2021 ambulatory Zandra Ellison Other [facility] Other Start: 12-29-2021 Office outpatient vi sit 15 minutes Zandra Ellison [facility] Start: 01-10-2021 End: 01-10-[address] TRESSA SANDOVAL Facility: Plan of Treatment Date Care Activity Detail Author Start: 05-29-2023 End: 05-29-2023 Patient encounter procedure 05/29/2023 10:30 AM EDT Routine [facility] [address] [place] [address] Michelle Rojas CNM [address] [place] [address] [facility] Start: 05-01-2023 End: 05-01-2024 Bacteria identified in Urine by Culture Urine culture Microbiology Routine examination or test, positive result Encounter for care of first , second trimester Expected: 05/01/2023 (Approximate), Expires: 05/01/2024 [facility] Comment on above: Expected: 05/01/2023 (Approximate), Expires: 05/01/2024 Start: 05-01-2023 End: 05-01-2024 DRUG TOX MONITORIGN 6 W/ CONF,URINE DRUG TOX MONITORIGN 6 W/ CONF,URINE Lab Routine examination or test, positive result Encounter for care of first , second trimester Expected: 05/01/2023 (Approximate), Expires: 05/01/2024 [facility] Comment on above: Expected: 05/01/2023 (Approximate), Expires: 05/01/2024 Start: 05-01-2023 End: 05-01-2024 Neisseria gonorrhoeae DNA [Presence] in Cervical mucus by EH with probe detection C. trachomatis / N. gonorrhoeae, DNA probe Lab Routine examination or test, positive result Encounter for care of first , second trimester Expected: 05/01/2023 (Approximate), Expires: 05/01/2024 [facility] Comment on above: Expected: 05/01/2023 (Approximate), Expires: 05/01/2024 Start: 05-01-2023 End: 05-01-2024 QHERIT(TM) EXPANDED CARRIER SCREEN QHERIT(TM) EXPANDED CARRIER SCREEN Lab Routine Encounter for care of first , second trimester Expected: 05/01/2023 (Approximate), Expires: 05/01/2024 [facility] Healthcare Comment on above: Expected: 05/01/2023 (Approximate), Expires: 05/01/2024 Start: 05-01-2023 End: 05-01-2024 QNATAL(R) ADVANCED QNATAL(R) ADVANCED Lab Routine Encounter for care of first , second trimester Expected: 05/01/2023 (Approximate), Expires: 05/01/2024 [facility] Comment on above: Expected: 05/01/2023 (Approximate), Expires: 05/01/2024 Start: 05-01-2023 End: 05-01-2024 TSH W/REFLEX TO FT4 TSH W/REFLEX TO FT4 Lab Routine examination or test, positive result Encounter for care of first , second trimester Expected: 05/01/2023 (Approximate), Expires: 05/01/2024 [facility] Healthcare Comment on above: Expected: 05/01/2023 (Approximate), Expires: 05/01/2024 Start: 05-01-2023 End: 05-01-2024 URINALYSIS MICROSCOPIC URINALYSIS MICROSCOPIC Lab Routine examination or test, positive result Encounter for care of first , second trimester Expected: 05/01/2023 (Approximate), Expires: 05/01/2024 [facility] Healthcare Comment on above: Expected: 05/01/2023 (Approximate), Expires: 05/01/2024 Start: 05-01-2023 End: 05-01-2023 Patient encounter procedure 05/01/2023 10:30 AM EST Routine [facility] [address] [place] [id number] Michelle Rojas, CN [address] [place] [address] Arrived [facility] Comment on above: Arrived ABO/Rh ABO/Rh Lab Routi ne examination or test, positive result Encounter for care of first , second trimester Ordered: 05/01/2023 [facility] Comment on above: Ordered: 05/01/2023 Antibody screen Antibody screen Lab Routine examination or test, positive result Encounter for care of first , second trimester Ordered: 05/01/2023 [facility] Comment on above: Ordered: 05/01/2023 Atopobium vaginae DN A [Presence] in Vaginal fluid by EH with probe detection [facility] Bacterial vaginosis associated bacterium 2 DNA [Presence] in Vaginal fluid by EH with probe detection [facility] CBC panel - Blood by Automated count CBC Lab Routine examination or test, positive result Encounter for care of first , second trimester Ordered: 05/01/2023 [facility] Comment on above: Ordered: 05/01/2023 Hemoglobin A1c measurement Hemoglobin A1c Lab Routine examination or test, positive result Encounter for care of first , second trimester Ordered: 05/01/2023 [facility] Comment on above: Ordered: 05/01/2023 Hepatitis B virus surface Ag [Presence] in Serum or Plasma by Immunoassay Hepatitis B surface antigen Lab Routine examination or test, positive result Encounter for care of first , second trimester Ordered: 05/01/2023 [facility] Work Phone: Comment on above: Ordered: 05/01/2023 Hepatitis C virus Ab [Presence] in Serum or Plasma by Immunoassay Hepatitis C antibody Lab Routine examination or test, positive result Encounter for care of first , second trimester Ordered: 05/01/2023 [facility] Comment on above: Ordered: 05/01/2023 HIV-1/HIV-2 antigen/antibody combination immunoassay HIV-1 and HIV-2 antibodies Lab Routine examination or test, positive result Encounter for care of first , second trimester Ordered: 05/01/2023 [facility] Comment on above: Ordered: 05/01/2023 Megasphaera sp type 1 DNA [Presence] in Vaginal fluid by EH with probe detection [facility] Reagin Ab [Presence] in Serum by RPR RPR Lab Routine examination or test, positive result Encounter for care of first , second trimester Ordered: 05/01/2023 [facility] Comment on above: Ordered: 05/01/2023 Rubella antibody, IgG Rubella an tibody, IgG Lab Routine examination or test, positive result Encounter for care of first , second trimester Ordered: 05/01/2023 [facility] Comment on above: Ordered: 05/01/2023 [facility] Payers Date Payer Category Payer Medicaid [employer] [facility] [id number] 2023-Present [address] [address] [place] [address] [id number] 2023 Unknown [employer] [id number] 2023-Present [address] [address] [place] [address] [id number] 2023 Self-pay [id number] 2022 Unknown [id number] 2.16.840.1.774483.19 2000 Unknown [id number] 2.16.840.1.979893.3.579.2. 593 2000 Unknown [id number] 2.16.840.1.486027.3.579.2. 1286 2000 Unknown [id number] 2.16.840.1.700934.3.579.2. 1258 2000 Unknown [id number] 2.16.840.1.766312.3.579.2. 1258 2000 Unknown [id number] 2.16.840.1.180107.3.579.2. 1258 2000 Unknown [id number] 2.16.840.1.958194.3.579.2. 1258 2000 Unknown [id number] 2.16.840.1.418683.3.579.2. 9 2000 Unknown [id number] 2.16.840.1.188358.3.579.2. 1258 2000 Unknown [id number] 2.16.840.1.748000.3.579.2. 1258 2000 Unknown [id number] 2.16.840.1.468964.3.579.2. 1258 2000 Unknown [id number] 2.16.840.1.175033.3.579.2. 1258 2000 Unknown [id number] 2.16.840.1.115443.3.579.2. 9 2000 Unknown [id number] 2.16.840.1.175165.3.579.2. 1259 2000 Unknown [id number] 2.16.840.1.977061.3.579.2. 1259 2000 Unknown [id number] 2.16.840.1.317397.3.579.2. 1259 2000 Unknown [id number] 2.16.840.1.962912.3.579.2. 1259 1959 Private Health Insurance [id number] 1959 Unknown [id number] 2.16.840.1.379320.19 1959 Unknown [id number] 2.16.840.1.073974.19 Unknown [id number] 2.16.840.1.451001.3.579.2. 531 Social History Date Type Detail Facility Unknown if ever smoked [facility] Other Start: 04-17-2023 Sex Assigned At N [facility] Other Start: 2000 Sex Assigned At Female F [facility] Start: 04-17-2023 Tobacco smoking status [facility] Ex-smoker [facility] History of tobacco use [...] a routine visit. documented in this encounter [facility] Evaluation note 02-06-2023 Note Date & Type [...] condoms. Jan, Vaginal discharge (ICD-10 - N89.8) [facility] Other Evaluation note 12-29-2021 Note Date & [...] with PCP if febrile or new/worsening s/s. [facility] Other Evaluation note Note Date & Type Note Facility Evaluation note No assessment information [facility] Work Phone: Evaluation note Note Date & Type Note Facility Evaluation note No Information [facility] Other Evaluation note Note Date & Type [...] oral surgery Hospitalization History Viral Infection 2011 [facility] Other Summary Purpose Family History No Family [...] care of first , second trimester Procedures [place] OFFICE/OUTPATIENT NEW HIGH MDM 60 MINUTES Michelle Rojas CNM [address] [place] [address] Michelle Rojas CNM [address] [place] [address] Referral ID Status Reason Start Date Expiration Date Visits Requested Visits Authorized [id number] Pending Review Specialty Services Required 05/01/2023 10/28/2023 1 1 Additional Source Comments REASON FOR VISIT (unrecogniz ed section and content) COUGH, CONGESTION, B/A, CHIL LSBACTERIAL VAGINITIS CHECKNo Information INFORMATION SOURCE (unrecogn ized section and content) DATE CREATED AUTHOR 01/20/2022 [facility] DATE CREATED AUTHOR AUTHOR'S ORGANIZ ATION 04/26/2023 [facility] DATE CREATED AUTHOR AUTHOR'S ORGANIZ ATION 10/17/2023 [facility] DATE CREATED AUTHOR AUTHOR'S ORGANIZ ATION 11/06/[address] [facility] d[facility] Specialists EPIC Care Teams [...] BE BASED ON THE PRIMARY CLINICAL RECORDS. MD [employer] [facility]. provides no warranty or guarantee of the accuracy or completeness of information in this document.
[2023-11-07 14:35] LABS: Hematocrit 36.7 % (36.0-48.0); Hemoglobin 12.3 g/dL (12.0-16.0); Mean Corpuscular HGB Conc 33.5 g/dL (29.9-35.2); Mean Corpuscular Hemoglobin 29.1 pg (26.7-34.0); Mean Corpuscular Volume 86.8 fL (81.0-99.0); Mean Platelet Volume 10.7 fL (9.5-13.5); Platelet Count 214 10^3/uL (150-450); Red Blood Count 4.23 10^6/uL (4.20-5.40); Red Cell Distribution Width 14.4 % (11.0-15.0); White Blood Count 13.8 10^3/uL (4.0-11.0)
[2023-11-07 14:47] LABS: Amphetamine Screen Urine NEGATIVE (NEGATIVE); Barbiturates Screen Urine NEGATIVE (NEGATIVE); Benzodiazepines Screen Urine NEGATIVE (NEGATIVE); Buprenorphine Screen Urine NEGATIVE (NEGATIVE); Cannabinoid Screen Urine NEGATIVE (NEGATIVE); Cocaine Screen Urine NEGATIVE (NEGATIVE); Methadone Screen Urine NEGATIVE (NEGATIVE); Methamphetamines Screen Urine NEGATIVE (NEGATIVE); Opiate Screen Urine NEGATIVE (NEGATIVE); Oxycodone Screen Urine NEGATIVE (NEGATIVE); Phencyclidine Screen Urine NEGATIVE (NEGATIVE); Tricyclic Antidepressant Urine NEGATIVE (NEGATIVE)
[2023-11-07] MEDS: LACTATED RINGER'S SOLUTION 1,000 ML 125 ML IV ×2 (15:01→18:50)
--- NOTE | 2023-11-07 16:28 | PM.OBHP ---
OB - H&P: HPI History of Present Illness Chief complaint: LABOR PAINS : 2 Para: 1 Gestational age based on last menstrual period: 37.3 Narrative: spontaneous labor History of Present Dating criteria: LMP confirmed by 1st trimester US care: good care Ultrasounds: normal 1st trimester US and normal mid trimester US [facility] Surgical History (Updated 11/07/23 @ 14:47 by Lauren Wynne RN) [place] teeth removed ?K08.409 - Partial loss of teeth, unspecified cause, unspecified class (ICD-10) Family History (Updated 11/07/23 @ 14:48 by Lauren Wynne RN) Grandmother Family history of cancer Mother Family history of hypertension Other Family history of diabetes mellitus Social History Highest level of school completed/degree received: high school graduate Meds Home Medications and Allergies Home Medications ?Medication ?Instructions ?Recorded ?Confirmed ?Type albuterol sulfate 90 mcg/actuation 2 inh inhalation Q4H PRN shortness 07/27/23 Rx aerosol inhaler of breath or wheezing #8.5 grams Allergies Allergy/AdvReac Type Severity Reaction Status Date / Time No Known Drug Allergies Allergy Verified 11/07/23 14:47 Exam Constitutional Vital Signs, click to edit/add: Last Vital Signs Temp 96.6 F L 11/07/23 14:49 Pulse 96 H 11/07/23 14:24 BP 124/72 11/07/23 14:24 Results Labs Labs: Short CBC 11/07/23 Range/Units 14:26 WBC 13.8 H (4.0-11.0) 10^3/uL Hgb 12.3 (12.0-16.0) g/dL Hct 36.7 (36.0-48.0) % Plt Count 214 (150-450) 10^3/uL
[2023-11-07] MEDS: OXYTOCIN/0.9 % SODIUM CHLORIDE 10 UNITS/500 ML PLAST..BAG 3 UNIT IV (19:27)
[2023-11-07] MEDS: LIDOCAINE HCL 1% 200 MG/20 ML MDV INJ (19:53)
[2023-11-07] MEDS: OXYTOCIN/0.9 % SODIUM CHLORIDE 20 UNITS/1,000 ML PLAST..BAG 125 UNIT IV (19:53)
--- NOTE | 2023-11-07 20:23 | PM.OBPRCVD ---
Procedure Induction method: none Delivery augmentation: rupture of membranes and pitocin Delivery monitor: external FHT and external uterine Route of delivery: Episiotomy Description: none L&D Laceration Description: labial (left labial repair x2 ) Delivery repair: Vicryl Estimated blood loss (mL): 150 Anesthesia type: Spinal Disposition: no change Delivery date: 11/07/23 Gender: male presentation: vertex Placental delivery description: Spontaneous cord description: 3 Vessels heart rate - 1 minute: 100 bpm or Greater respiratory effort - 1 minute: Spontaneous/Strong Cry muscle tone - 1 minute: Active Movement reflex response - 1 minute: Prompt Response color - 1 minute: Pallor or Cyanosis total score - 1 minute: 8 heart rate - 5 minute: 100 bpm or Greater respiratory effort - 5 minute: Spontaneous/Strong Cry muscle tone - 5 minute: Active Movement reflex response - 5 minute: Prompt Response color - 5 minute: Bluish Hands or Feet total score - 5 minute: 9
[2023-11-08] MEDS: IBUPROFEN 400 MG TABLET 800 MG PO ×3 (02:14→21:32)
[2023-11-08] MEDS: BENZOCAINE/MENTHOL 85 GRAM SPRAY BOTTLE 1 APPLIC TOPICAL (04:44)
[2023-11-08] MEDS: GLYCERIN/WITCH HAZEL PADS 1 PAD TOPICAL (04:45)
[2023-11-08 07:29] LABS: Basophils Absolute Auto 0.1 10^3/uL (0.0-0.1); Basophils Percent Auto 0.3 % (0.2-2.0); Eosinophils Percent Auto 0.3 % (0.9-7.0); Hematocrit 30.8 % (36.0-48.0); Hemoglobin 10.5 g/dL (12.0-16.0); Immature Granulocytes Abs Auto 0.12 10^3/uL (0.00-0.03); Immature Granulocytes Pct Auto 0.8 % (0.0-0.5); Lymphocytes Absolute Auto 2.8 10^3/uL (1.2-3.8); Lymphocytes Percent Auto 19.1 % (20.5-60.0); Mean Corpuscular HGB Conc 34.1 g/dL (29.9-35.2); Mean Corpuscular Hemoglobin 29.5 pg (26.7-34.0); Mean Corpuscular Volume 86.5 fL (81.0-99.0); Mean Platelet Volume 10.6 fL (9.5-13.5); Monocytes Absolute Auto 1.3 10^3/uL (0.3-0.8); Monocytes Percent Auto 9.2 % (1.7-12.0); Neutrophils Absolute Auto 10.1 10^3/uL (1.4-6.5); Neutrophils Percent Auto 70.3 % (43.0-75.0); Platelet Count 154 10^3/uL (150-450); Red Blood Count 3.56 10^6/uL (4.20-5.40); Red Cell Distribution Width 14.1 % (11.0-15.0); White Blood Count 14.4 10^3/uL (4.0-11.0)
--- NOTE | 2023-11-08 07:52 | P.OBPN_ITS ---
OB - PN: Subj Subjective Patient comments: no complaints and pain well controlled [place] status: doing well Exam Constitutional Vital Signs, click to edit/add: Last Vital Signs Temp 97.6 F 11/07/23 23:23 Pulse 102 H 11/07/23 23:23 Resp 16 11/07/23 21:30 BP 129/67 11/07/23 23:23 O2 Del Method Room Air 11/08/23 00:30 Documenting provider has reviewed patient's vital signs: yes Common normals: no apparent distress Respiratory Common normals: normal respiratory effort and clear to auscultation bilaterally Cardio Common normals: regular rate and regular rhythm GI Common normals: Normal to inspection, nondistended, normoactive bowel sounds present Extremity Common normals: no clubbing, cyanosis or edema and no calf tenderness Results Labs Labs: Short CBC 11/07/23 11/08/23 Range/Units 14:26 07:24 WBC 13.8 H 14.4 H (4.0-11.0) 10^3/uL Hgb 12.3 10.5 L (12.0-16.0) g/dL Hct 36.7 30.8 L (36.0-48.0) % Plt Count 214 154 (150-450) 10^3/uL OB - PN: A/P Plan - Vaginal Delivery day: 1 Plan: routine care Time Spent with Patient Time: Total time spent is greater than 50% in coordination of care (as documented) at patient's floor/unit and/or counseling patient: Total time spent with greater than 50% in coordination of care (as documented) at patient's floor/unit and/or counseling patient: less than 15 minutes
[2023-11-08] MEDS: DOCUSATE SODIUM 100 MG CAPSULE PO ×2 (09:51→21:33)
[2023-11-08] MEDS: ACETAMINOPHEN 325 MG TABLET 650 MG PO ×2 (09:51→18:16)
[2023-11-08 09:52] VITALS: BP 115/66; PULSE 92
[2023-11-08 18:13] VITALS: BP 104/59; PULSE 91
[2023-11-08 18:22] VITALS: TEMP 36.7
[2023-11-08 21:37] VITALS: BP 115/69; PULSE 89
[2023-11-08 21:40] VITALS: TEMP 36.5
[2023-11-09] MEDS: IBUPROFEN 400 MG TABLET 800 MG PO (05:41)
[2023-11-09 06:30] VITALS: TEMP 36.4
[2023-11-09 06:31] VITALS: BP 104/56; PULSE 68
[2023-11-09] MEDS: DOCUSATE SODIUM 100 MG CAPSULE PO (08:31)
[2023-11-09 08:58] VITALS: BP 112/79; PULSE 88; TEMP 35.2
[2023-11-09 08:59] VITALS: TEMP 36.9
--- NOTE | 2023-11-09 10:40 | PM.OBPN ---
OB - PN: Subj Subjective Patient comments: no complaints [place] status: doing well feeding status: exclusively Exam Constitutional Vital Signs, click to edit/add: Last Vital Signs Temp 98.5 F 11/09/23 08:59 Pulse 88 11/09/23 08:58 Resp 18 11/09/23 08:59 BP 112/79 11/09/23 08:58 O2 Del Method Room Air 11/09/23 09:02 Documenting provider has reviewed patient's vital signs: yes Common normals: no apparent distress General appearance: cooperative and comfortable Orientation/consciousness: Yes awake, Yes oriented to person, Yes oriented to place and Yes oriented to time HENMT Common normals: normocephalic Eye Common normals: EOMs intact bilaterally Neck & C-Spine Common normals: full ROM Lymph Lymphatic: no lymphadenopathy noted Chest Common normals: inspection of chest normal Respiratory Common normals: normal respiratory effort Effort & inspection: able to speak in complete sentences Auscultation: clear to auscultation bilaterally Cardio Common normals: regular rate and regular rhythm Rate: regular rate Rhythm: regular rhythm GI Common normals: Normal to inspection, nondistended, normoactive bowel sounds present Inspection: normal to inspection Palpation: soft Common normals: no CVA tenderness Back & Pelvis Common normals: no CVA tenderness Extremity Common normals: normal to inspection Neuro Common normals: oriented x3 Sensorium/orientation: awake, alert, oriented to person, oriented to place and oriented to time Psych Common normals: mental status grossly normal Attitude: calm OB - PN: A/P Plan - Vaginal Delivery day: 2 Plan: discharge home Time Spent with Patient Time: Total time spent is greater than 50% in coordination of care (as documented) at patient's floor/unit and/or counseling patient: Total time spent with greater than 50% in coordination of care (as documented) at patient's floor/unit and/or counseling patient: less than 15 minutes
== END 2023-11-09 13:15 | disposition home or self-care (01) | DRG 807 ==
PROVIDERS: Admitting Provider Midwife; Visit Provider Midwife
DX: O26.893 Other specified pregnancy related conditions, third trimester (principal); Z37.0 Single live birth; Z67.41 Type O blood, Rh negative; Z87.440 Personal history of urinary (tract) infections; Z87.891 Personal history of nicotine dependence; O70.0 First degree perineal laceration during delivery; Z3A.37 37 weeks gestation of pregnancy
CPT/HCPCS: 36415; 59050; 59410; 80307; 85025; 85027; 86850; 86900; 86901; 96365; 96366; 96376; J3010